=== PATIENT | male | born 1955 | race Caucasian/White ===

== ENCOUNTER 2023-07-02 19:05 | Inpatient (IN) | payer MEDICARE, SELFPAY ==
[2023-07-02] VITALS (11 sets, daily range): BP systolic 96–116; BP diastolic 61–95; PULSE 72–91; RESP 16–20; TEMP 36.6–37; O2SAT 89–93; BMI 16.8; BMI 16.6
--- NOTE | 2023-07-02 19:34 | CRLHL7_ITS ---
For Patients: As a result of the Cures Act, medical imaging exams and procedure reports are released immediately into your electronic medical record. You may view this report before your referring provider. If you have questions, please contact your health care provider. INDICATION: Shortness of breath TECHNIQUE: Chest 2 view. Permanently recorded images are archived. COMPARISON: 03/30/2016 FINDINGS: Cardiovascular and mediastinum: Heart size and vasculature are normal in caliber and appearance. Unchanged calcified left hilar granuloma Lungs and pleural spaces: Hyperexpanded lungs. New dense pulmonary nodule in the left midlung on the frontal image. Unchanged small pulmonary nodule in the left upper lobe. Increased hazy lung markings in the left lung base and left upper lobe Bones and soft tissues: Unremarkable for age. IMPRESSION: Increased hazy lung markings in the left lung base and left upper lobe, could represent multilobar pneumonia in the correct clinical setting, or scarring/fibrotic changes. New dense pulmonary nodule in the left midlung frontal image. While this could represent nodular consolidation in the setting of infection, a pulmonary nodule or calcified granuloma could appear similar. Recommend follow-up imaging after treatment to ensure resolution. Dictated by Ashwin Mcbride MD @ 07/02/2023 8:30:54 PM (Electronically Signed)
[2023-07-02 19:55] LABS: Eosinophils Percent Auto 0.1 % (0.0-7.0); Hematocrit 41.2 % (37.0-53.0); Hemoglobin* 13.5 gm/dL (13.5-17.5); Immature Granulocytes Pct Auto 0.2 %; Lymphocytes Percent Auto 5.2 % (20-44); Mean Corpuscular HGB Conc 33 gm/dL (32-36); Mean Corpuscular Hemoglobin 29 pg (26-34); Mean Corpuscular Volume 89 fL (80-100); Monocytes Percent Auto 5.2 % (0.0-11.0); Neutrophils Percent Auto 89.3 % (42.0-72.0); Platelet Count* 258 K/uL (140-440); RDW Coefficient of Variation % 13.1 % (11.5-15.5); Red Blood Count 4.64 m/uL (4.30-5.90); White Blood Count* 17.84 K/uL (4.50-11.00)
[2023-07-02 19:58] LABS: Slide Review Reflex No
[2023-07-02] MEDS: 0.9 % SODIUM CHLORIDE 500 ML 500 ML IV (19:58)
[2023-07-02 20:08] LABS: Albumin* 3.9 g/dL (3.3-5.0); Chloride* 98 mmol/L (96-114)
[2023-07-02 20:09] LABS: Potassium* 4.2 mmol/L (3.6-5.1); Sodium* 133 mmol/L (135-149)
[2023-07-02 20:11] LABS: Alanine Aminotransferase* 12 U/L (4-50); Alkaline Phosphatase* 97 U/L (40-150); Aspartate Amino Transferase* 20 U/L (12-35); Bilirubin Direct* 0.2 mg/dL (0.0-0.5); Bilirubin Total* 0.8 mg/dL (0.1-1.5); Creatinine* 1.1 mg/dL (0.5-1.5); Est. Creatinine Clearance* 44.73; Estimated Glomerular Filt Rate 74 ml/min; Total Protein* 7.7 g/dL (6.0-8.3)
[2023-07-02 20:12] LABS: Anion Gap 10 mEq/L (7-15); Blood Urea Nitrogen* 15 mg/dL (7-30); Calcium* 9.5 mg/dL (8.4-10.6); Carbon Dioxide* 25 mmol/L (20-32); Glucose* 95 mg/dL (60-115)
[2023-07-02 20:24] LABS: C Reactive Protein* 18.5 mg/dL (0.5-1.0); NT Pro B Type NatriureticPept* 785 pg/mL; Troponin I* < 0.01 ng/mL (0.01-0.04)
--- NOTE | 2023-07-02 20:25 | ED_ITS ---
HPI - General Adult General Chief complaint: Weakness Stated complaint: weakness Time Seen by Provider: 07/02/23 19:25 Source: patient Mode of arrival: EMS Limitations: no limitations History of Present Illness HPI narrative: 67-year-old male with a history of COPD, Parkinson's disease, and continued tobacco use disorder presenting today with increased weakness. Patient has been living with his brother, brother had a hard time getting him to ambulate today. Patient states that he just feels very weak, tired and ?slightly short of breath on and off?. Patient states that he takes a blood pressure medication and his inhaler, does not take any of his other prescribed medications including his Parkinson's medications because he cannot afford them. He is not sure which inhaler he is using, he does have several prescribed to him. Patient has a period of homelessness and failure to thrive recently, is staying with his brother. He denies any fevers or chills. He denies 1 extremity being weaker than the other. He complains of weakness of the entire body but mostly the legs, again this is symmetric. He denies any loss of bowel or bladder function, no back pain. Denies any new cough or worsening cough, no vomiting. States that he has been eating and drinking like he always does. His brother called EMS. When EMS arrived patient was found to be hypoxic at 89-90% on room air. He does not have oxygen at home. Related Data Home Medications Medication Instructions Recorded Confirmed albuterol sulfate 90 mcg/actuation inhalation 07/02/23 aerosol inhaler carbidopa 25 mg-levodopa 100 mg 1 tab PO BID 07/02/23 07/02/23 tablet folic acid 1 mg tablet 1 mg PO DAILY 07/02/23 07/02/23 ipratropium 20 mcg-albuterol 100 1 puff inhalation Q6H 07/02/23 07/02/23 mcg/actuation mist for inhalation melatonin 3 mg capsule 3 mg PO HS PRN 07/02/23 07/02/23 metoprolol tartrate 50 mg tablet 50 mg PO DAILY blood pressure 07/02/23 07/02/23 selegiline HCl 5 mg capsule 5 mg PO BID 07/02/23 07/02/23 tiotropium 2.5 mcg-olodaterol 2.5 2 inh inhalation DAILY 07/02/23 07/02/23 mcg/actuation mist for inhalation (Stiolto Respimat) Allergies Allergy/AdvReac Type Severity Reaction Status Date / Time fish derived Allergy Verified 07/02/23 19:19 Review of Systems Status of ROS: Reports: 10 or more systems reviewed and unremarkable except as noted in History and below [facility] Social History Smoking Status: Current every day smoker What tobacco products do you use: cigarettes Do you use any of these nicotine containing products: None How often do you have a drink containing alcohol: never AUDIT-C Alcohol total score: 0 Non-prescribed substance use: marijuana (any form) Exam Narrative: Exam Narrative: Thin, frail patient in no acute distress. Alert and oriented. Patient is cooperative but answers a lot of questions involving his health by saying I am not sure. Affect is slightly flat. Thoughts are goal oriented and rational. No tangential or magical thinking noted. Patient has a hard time completing full sentence without needing take a deep breath. Patient is disheveled. HEENT: Normocephalic atraumatic. Pupils are equally round reactive to light. Extraocular muscles are intact. Conjunctivae are moist without any icterus noted. Moist mucous membranes. Posterior pharynx is normal. Very poor dentition. Cardiovascular: Heart is regular rate and rhythm S1 and S2 are present without any murmurs. Lungs: Rales are present bilaterally. Abdomen: Soft and nontender nondistended with normal bowel sounds. No guarding or rebound. Extremities: Bilateral lower extremities are without edema. Normal DP and PT pulses. Skin: Well perfused without any obvious rashes. Const: Vital Signs, click to edit/add: Vital Signs - 24 hr 07/02/23 19:11 07/02/23 19:13 07/02/23 19:19 Temperature 98 F Pulse Rate 87 Pulse Rate [Pulse Oximeter] 88 Respiratory Rate 20 18 Blood Pressure 116/95 H Blood Pressure [Le ft Upper Arm] 116/95 H Pulse Oximetry 90 89 91 Oxygen Delivery Me thod Room Air Nasal Cannula Oxygen Flow Rate 1 1 07/02/23 19:31 07/02/23 19:34 07/02/23 19:56 Temperature Pulse Rate 82 78 Pulse Rate [Pulse Oximeter] Respiratory Rate 18 18 Blood Pressure 114/65 102/72 Blood Pressure [Le ft Upper Arm] Pulse Oximetry 89 91 92 Oxygen Delivery Me thod Room Air Room Air Oxygen Flow Rate 07/02/23 20:01 Temperature Pulse Rate 77 Pulse Rate [Pulse Oximeter] Respiratory Rate 18 Blood Pressure 110/70 Blood Pressure [Le ft Upper Arm] Pulse Oximetry 93 Oxygen Delivery Me thod Room Air Oxygen Flow Rate Course Course Hospital Course: IV is established and fluids are started. Patient is placed on 1 L nasal cannula and goes up to approximately 92-93%. EKG, read by me, shows normal sinus rhythm, pulse 89, left bundle-branch block. Unknown if left bundle-branch block is new. Labs were drawn: WBC elevated at 17.8, CRP above 18. Remainder of blood work unremarkable, including a troponin. Triple swab negative. Chest x-ray, read by me, shows a left-sided infiltrate. Rocephin and azithromycin started in the ER today after blood cultures were drawn. Vital Signs Vital signs: Initial Vital Signs Pulse Rate 87 07/02/23 19:11 Respiratory Rate 20 07/02/23 19:11 Blood Pressure 116/95 H 07/02/23 19:11 Blood Pressure Mean 102 07/02/23 19:11 Pulse Oximetry 90 07/02/23 19:11 Oxygen Flow Rate 1 07/02/23 19:11 Vital Signs Pulse Rate 87 07/02/23 19:11 Respiratory Rate 20 07/02/23 19:11 Blood Pressure 116/95 H 07/02/23 19:11 Pulse Oximetry 90 07/02/23 19:11 Oxygen Flow Rate 1 07/02/23 19:11 Temperature 98 F 07/02/23 19:13 Pulse Rate 77 07/02/23 20:01 Respiratory Rate 18 07/02/23 20:01 Blood Pressure 110/70 07/02/23 20:01 Pulse Oximetry 93 07/02/23 20:01 Oxygen Delivery Method Room Air 07/02/23 20:01 Oxygen Flow Rate 1 07/02/23 19:19 Medical Decision Making MDM Narrative Medical decision making narrative: 67-year-old male with a history of COPD, presenting with pneumonia and weakness. Patient will be admitted for further management. Lab Data Lab results reviewed: Yes I reviewed the patient's lab results Labs: Lab Results 07/02/23 Range/Units 19:45 WBC 17.84 H (4.50-11.00) K/uL RBC 4.64 (4.30-5.90) m/uL Hgb 13.5 (13.5-17.5) gm/dL Hct 41.2 (37.0-53.0) % MCV 89 (80-100) fL MCH 29 (26-34) pg MCHC 33 (32-36) gm/dL RDW Coeff of Karolyn 13.1 (11.5-15.5) % Plt Count 258 (140-440) K/uL Neut % (Auto) 89.3 H (42.0-72.0) % Lymph % (Auto) 5.2 L (20-44) % Schleicher % (Auto) 5.2 (0.0-11.0) % Eos % (Auto) 0.1 (0.0-7.0) % Baso % (Auto) 0.0 (0.0-3.0) % Neut # (Auto) 15.90 H (1.7-7.0) K/uL Lymph # (Auto) 0.90 (0.90-2.90) K/uL Schleicher # (Auto) 0.90 (0.00-0.90) K/UL Eos # (Auto) 0.00 (0.00-0.50) K/uL Baso # (Auto) 0.00 (0.00-0.30) K/uL Abs Immat Gran (auto) 0.00 (0.00-0.30) K/uL Imm/Tot Granulo (auto) 0.2 % Sodium 133 L (135-149) mmol/L Potassium 4.2 (3.6-5.1) mmol/L Chloride 98 (96-114) mmol/L Carbon Dioxide 25 (20-32) mmol/L Anion Gap 10 (7-15) mEq/L BUN 15 (7-30) mg/dL Creatinine 1.1 (0.5-1.5) mg/dL Estimated Creat Clear 44.73 Estimated GFR 74 ml/min Glucose 95 (60-115) mg/dL Lactate 1.0 (0.5-1.9) mmol/L Calcium 9.5 (8.4-10.6) mg/dL Total Bilirubin 0.8 (0.1-1.5) mg/dL Direct Bilirubin 0.2 (0.0-0.5) mg/dL AST 20 (12-35) U/L ALT 12 (4-50) U/L Alkaline Phosphatase 97 (40-150) U/L Troponin I < 0.01 L (0.01-0.04) ng/mL C-Reactive Protein 18.5 H (0.5-1.0) mg/dL NT-Pro-B Natriuret Pep 785 pg/mL Total Protein 7.7 (6.0-8.3) g/dL Albumin 3.9 (3.3-5.0) g/dL SARS-CoV-2 (PCR) Negative SARS-CoV-2 (Negative) Influenza Type A (PCR) Negative PCR FLU A (Negative) Influenza Type B (PCR) Negative PCR FLU B (Negative) RSV (PCR) Negative PCR RSV (Negative) Imaging Data Chest x-ray: Attestation: I have reviewed the pertinent imaging results. Radiologist's impression: Chest 2 view. Permanently recorded images are archived. COMPARISON: 03/30/2016 FINDINGS: Cardiovascular and mediastinum: Heart size and vasculature are normal in caliber and appearance. Unchanged calcified left hilar granuloma Lungs and pleural spaces: Hyperexpanded lungs. New dense pulmonary nodule in the left midlung on the frontal image. Unchanged small pulmonary nodule in the left upper lobe. Increased hazy lung markings in the left lung base and left upper lobe Bones and soft tissues: Unremarkable for age. IMPRESSION: Increased hazy lung markings in the left lung base and left upper lobe, could represent multilobar pneumonia in the correct clinical setting, or scarring/fibrotic changes. New dense pulmonary nodule in the left midlung frontal image. While this could represent nodular consolidation in the setting of infection, a pulmonary nodule or calcified granuloma could appear similar. Recommend follow-up imaging after treatment to ensure resolution. ECG Data Attestation: I personally reviewed and interpreted this ECG as follows: Discharge Plan Discharge Clinical Impression: Weakness, Pneumonia Patient Disposition: Admitted As Inpatient Condition: Stable
[2023-07-02 20:33] LABS: PCR FLU A Negative PCR FLU A (Negative); PCR FLU B Negative PCR FLU B (Negative); PCR RSV Negative PCR RSV (Negative)
[2023-07-02 20:44] LABS: SARS PCR* Negative SARS-CoV-2 (Negative)
[2023-07-02 20:46] LABS: Appearance Urine Slightly Cloudy (Clear); Bilirubin Urine Negative (Negative); Blood Urine Trace-intact (Negative); Color Urine Yellow (Yellow); Glucose Urine Negative (Negative); Ketones Urine 2+ (Negative); Leukocyte Esterase Urine Trace (Negative); Nitrite Urine Positive (Negative); Protein Urine 2+ (Negative); Urobilinogen Urine 0.2 (0.2-1.0); pH Urine 6.5 (5.0-8.5)
[2023-07-02] MEDS: AZITHROMYCIN 500 MG in 0.9 % SODIUM CHLORIDE 250 ml 250 ML 255 MG IVPB (20:47)
[2023-07-02 20:49] LABS: Thyroid Stimulating Hormone* 0.475 uIU/mL (0.270-4.20)
[2023-07-02 20:57] LABS: Amorphous Sediment Urine Moderate; Bacteria Urine Few; RBC Urine 0-2 (0-2); Squamous Epithelial Cell Urine Few (None-Few)
--- NOTE | 2023-07-02 21:16 | PC.NURSE ---
report given to Melissa ROME on M/S
--- NOTE | 2023-07-02 21:24 | PC.NURSE ---
patient taken to room 259 on medsurg
--- NOTE | 2023-07-02 21:28 | PM.IMHP1 ---
Hospitalist- H&P: HPI History of Present Illness Time Seen by Provider: 22:30 Date Seen: 07/02/23 Chief complaint: weakness Narrative: Levy Argueta is a 67 year old male with long h/o EtOH abuse (quit 1 year ago), FTT, severe malnutrition, HTN, COPD who presented through ER for concern of acute bilateral LE weakness. His brother told ER physician that Hank has been declining and has become weak to the point where he can no longer walk. There seems to be in acute on chronic component of this. Hank said that he felt sudden numbness in both of his lower extremities this morning upon waking. It is notable that in Dr. Begum's office note from about a year ago, Hank was at the visit in a wheelchair and had difficulty getting up from the wheelchair and standing for 1 minute due to weakness and difficulty with balance. He also has a history of failure to thrive and severe protein calorie malnutrition noted in 2019 when he was hospitalized at [facility]. Here he was found to have possible left-sided pneumonia. Also has a history of dysphagia for which he had been on a dysphagia diet at 1 point, but I do not think he is currently following this. He is also self discontinued various medications, such as those for parkinsonism, due to cost. He denies any fevers, chills, shortness of breath, cough, upper respiratory symptoms, or pain. He has had no other focal numbness, weakness, or tingling. He is a poor historian and was unable to give specific details of his history or medications. Review of Systems Status of ROS: Reports: 10 or more systems reviewed and unremarkable except as noted in History and below [facility] Medical History (Updated 07/02/23 @ 23:18 by Shu Vaughan MD) Dysphagia ?R13.10 - Dysphagia, unspecified (ICD-10) Cerebral vascular disease ?I67.9 - Cerebrovascular disease, unspecified (ICD-10) Failure to thrive COPD (chronic obstructive pulmonary disease) ?J44.9 - Chronic obstructive pulmonary disease, unspecified (ICD-10) Empyema of lung ?J86.9 - Pyothorax without fistula (ICD-10) POLST (Physician Orders for Life-Sustaining Treatment) ?Z78.9 - Other specified health status (ICD-10) Parkinson disease ?G20 - Parkinson's disease (ICD-10) ARF (acute renal failure) ?N17.9 - Acute kidney failure, unspecified (ICD-10) Colonic thickening ?K63.9 - Disease of intestine, unspecified (ICD-10) Pulmonary nodules ?R91.8 - Other nonspecific abnormal finding of lung field (ICD-10) GERD (gastroesophageal reflux disease) ?K21.9 - Gastro-esophageal reflux disease without esophagitis (ICD-10) Systolic CHF ?I50.20 - Unspecified systolic (congestive) heart failure (ICD-10) Anemia in chronic illness ?D63.8 - Anemia in other chronic diseases classified elsewhere (ICD-10) Aspiration pneumonia ?J69.0 - Pneumonitis due to inhalation of food and vomit (ICD-10) Tobacco use disorder ?F17.200 - Nicotine dependence, unspecified, uncomplicated (ICD-10) Hyponatremia ?E87.1 - Hypo-osmolality and hyponatremia (ICD-10) Alcohol withdrawal syndrome ?F10.939 - Alcohol use, unspecified with withdrawal, unspecified (ICD-10) Abnormal liver function tests (~2012) ?R79.89 - Other specified abnormal findings of blood chemistry (ICD-10) CKD (chronic kidney disease) ?N18.9 - Chronic kidney disease, unspecified (ICD-10) AISHA (obstructive sleep apnea) ?G47.33 - Obstructive sleep apnea (adult) (pediatric) (ICD-10) LBBB (left bundle branch block) ?I44.7 - Left bundle-branch block, unspecified (ICD-10) Homelessness ?Z59.00 - Homelessness unspecified (ICD-10) Cervical spine arthritis ?M47.812 - Spondylosis without myelopathy or radiculopathy, cervical region (ICD-10) Alcohol abuse ?F10.10 - Alcohol abuse, uncomplicated (ICD-10) Hypertension ?I10 - Essential (primary) hypertension (ICD-10) Seizure disorder ?G40.909 - Epilepsy, unspecified, not intractable, without status epilepticus (ICD-10) Surgical History (Updated 07/02/23 @ 21:46 by Shu Vaughan MD) Hx of unilateral orchiectomy ?Z90.79 - Acquired absence of other genital organ(s) (ICD-10) History of lumbar fusion ?Z98.1 - Arthrodesis status (ICD-10) Hx of hernia repair ?Z98.890 - Other specified postprocedural states (ICD-10) ?Z87.19 - Personal history of other diseases of the digestive system (ICD-10) Hx of fusion of cervical spine ?Z98.1 - Arthrodesis status (ICD-10) Family History (Updated 07/02/23 @ 21:48 by Shu Vaughan MD) Brother Colon polyps Diabetes Father Diabetes Heart disease Stroke Social History (Updated 07/02/23 @ 22:43 by Shu Vaughan MD) Narrative: Lives with brother. Smokes 1ppd, rolls his own cigarettes. He is a lifelong alcoholic, was that treatment several times, and stopped drinking completely about 1 year ago. He smokes marijuana at least daily, sometimes several times a day, most recently yesterday, he did not use any today. He confirms that he would like to be DNR/DNI. What is your current living situation?: I have a place to live at present, but am concerned about future Problems where you live: no known problems Problems where you live details: NA In the past 12 months, utilities in danger of being shut off: no In the past 12 mos, have been you worried that your food would run out before you had money to buy more?: never true In the past 12 mos, the food you bought just didn't last and you didn't have money to buy more?: never true Highest level of school completed/degree received: high school graduate Smoking Status: Current every day smoker What tobacco products do you use: cigarettes Smoking packs per day: 1 Smoking cigarettes per day: 20.0 Years smoked: 50 Smoking pack-years: 50.00 Do you use any of these nicotine containing products: None Second hand tobacco smoke exposure: Yes How often do you have a drink containing alcohol: never How often do you have six or more drinks on one occasion: Never AUDIT-C Alcohol total score: 0 Non-prescribed substance use: marijuana (any form) Non-prescribed substance use details: daily Caffeine: No How often does anyone, including family, friends and others, physically hurt you: never How often does anyone, including family, friends and others, insult or talk down to you: never How often does anyone, including family, friends and others, threaten you with harm: never How often does anyone, including family, friends and others, scream or curse at you: never service: No Meds Home Medications and Allergies Home Medications Medication Instructions Recorded Confirmed Type albuterol sulfate 90 mcg/actuation 2 puff inhalation Q4H PRN 07/02/23 07/02/23 History aerosol inhaler amlodipine 10 mg tablet 10 mg PO DAILY blood pressure 07/02/23 07/02/23 History carbidopa 25 mg-levodopa 100 mg 1 tab PO BID 07/02/23 07/02/23 History tablet folic acid 1 mg tablet 1 mg PO DAILY 07/02/23 07/02/23 History ipratropium 20 mcg-albuterol 100 1 puff inhalation Q6H 07/02/23 07/02/23 History mcg/actuation mist for inhalation melatonin 3 mg capsule 3 mg PO HS PRN 07/02/23 07/02/23 History metoprolol tartrate 50 mg tablet 50 mg PO DAILY blood pressure 07/02/23 07/02/23 History selegiline HCl 5 mg capsule 5 mg PO BID 07/02/23 07/02/23 History tiotropium 2.5 mcg-olodaterol 2.5 2 inh inhalation DAILY 07/02/23 07/02/23 History mcg/actuation mist for inhalation (Stiolto Respimat) Allergies Allergy/AdvReac Type Severity Reaction Status Date / Time fish derived Allergy Verified 07/02/23 19:19 Exam Narrative: Exam Narrative: General: Thin, cachectic, looks older than stated age, No acute distress. Awake alert oriented x3. HEENT: Normocephalic atraumatic, pupils equally round and reactive to light and accommodation. Oropharynx clear. Poor dentition. Mucous membranes are moist. No cervical lymphadenopathy, thyromegaly or carotid bruits. No JVD. Cardiovascular: Regular rate and rhythm. No murmurs, gallops, or rubs. Chest: No increased work of breathing. Poor inspiratory effort. Some tightness and bilateral rales, no wheezing or crackles. Abdomen: Bowel sounds present. Soft, nondistended, nontender. No hepatosplenomegaly or masses. Extremities: No edema, no cyanosis or clubbing. Skin: No jaundice, no pallor, no rashes. Neuro: There are no focal deficits. Romberg is negative. Cranial nerves 2-12 are intact. Extraocular movements are full. No nystagmus. No facial asymmetry. Tongue is midline. Peripheral vision and vision are grossly intact. Strength is 5/5 in all 4 extremities. DTRs intact and symmetric. Light touch sensation is intact in face body and extremities. Coordination is intact in upper and lower extremities. Const: Vital Signs, click to edit/add: Vital Signs - 24 hr 07/02/23 19:11 07/02/23 19:13 07/02/23 19:19 Temperature 98 F Pulse Rate 87 Pulse Rate [Pulse Oximeter] 88 Respiratory Rate 20 18 Blood Pressure 116/95 H Blood Pressure [Le ft Upper Arm] 116/95 H Pulse Oximetry 90 89 91 Oxygen Delivery Me thod Room Air Nasal Cannula Oxygen Flow Rate 1 1 07/02/23 19:31 07/02/23 19:34 07/02/23 19:56 Temperature Pulse Rate 82 78 Pulse Rate [Pulse Oximeter] Respiratory Rate 18 18 Blood Pressure 114/65 102/72 Blood Pressure [Le ft Upper Arm] Pulse Oximetry 89 91 92 Oxygen Delivery Me thod Room Air Room Air Oxygen Flow Rate 07/02/23 20:01 07/02/23 20:33 07/02/23 21:01 Temperature Pulse Rate 77 76 72 Pulse Rate [Pulse Oximeter] Respiratory Rate 18 18 18 Blood Pressure 110/70 112/79 96/61 Blood Pressure [Le ft Upper Arm] Pulse Oximetry 93 90 91 Oxygen Delivery Me thod Room Air Oxygen Flow Rate Hospitalist - H&P: Result Labs Labs: Short CBC 07/02/23 Range/Units 19:45 WBC 17.84 H (4.50-11.00) K/uL Hgb 13.5 (13.5-17.5) gm/dL Hct 41.2 (37.0-53.0) % Plt Count 258 (140-440) K/uL BMP 07/02/23 19:45 Sodium 133 L Potassium 4.2 Chloride 98 Carbon Dioxide 25 BUN 15 Creatinine 1.1 Glucose 95 Calcium 9.5 Cardiac Enzymes 07/02/23 Range/Units 19:45 Troponin I < 0.01 L (0.01-0.04) ng/mL Liver Function 07/02/23 Range/Units 19:45 Total Bilirubin 0.8 (0.1-1.5) mg/dL Direct Bilirubin 0.2 (0.0-0.5) mg/dL AST 20 (12-35) U/L ALT 12 (4-50) U/L Alkaline Phosphatase 97 (40-150) U/L Albumin 3.9 (3.3-5.0) g/dL Urine 07/02/23 Range/Units 20:41 Urine Color Yellow (Yellow) Urine Appearance Slightly Cloudy A (Clear) Urine pH 6.5 (5.0-8.5) Ur Specific Starbuck 1.020 (1.000-1.030) Urine Protein 2+ A (Negative) Urine Glucose (UA) Negative (Negative) Ordering Physician: Elle Foy M.D. Date of Service: 07/02/23 Procedure(s): XR chest 2V Accession Number(s): [id number] cc: Elle Foy M.D.; Provider,Not a Local~ For Patients: As a result of the Cures Act, medical imaging exams and procedure reports are released immediately into your electronic medical record. You may view this report before your referring provider. If you have questions, please contact your health care provider. INDICATION: Shortness of breath TECHNIQUE: Chest 2 view. Permanently recorded images are archived. COMPARISON: 03/30/2016 FINDINGS: Cardiovascular and mediastinum: Heart size and vasculature are normal in caliber and appearance. Unchanged calcified left hilar granuloma Lungs and pleural spaces: Hyperexpanded lungs. New dense pulmonary nodule in the left midlung on the frontal image. Unchanged small pulmonary nodule in the left upper lobe. Increased hazy lung markings in the left lung base and left upper lobe Bones and soft tissues: Unremarkable for age. IMPRESSION: Increased hazy lung markings in the left lung base and left upper lobe, could represent multilobar pneumonia in the correct clinical setting, or scarring/fibrotic changes. New dense pulmonary nodule in the left midlung frontal image. While this could represent nodular consolidation in the setting of infection, a pulmonary nodule or calcified granuloma could appear similar. Recommend follow-up imaging after treatment to ensure resolution. Dictated by Ashwin Mcbride MD @ 07/02/2023 8:30:54 PM (Electronically Signed) Assessment and Plan Assessment and plan (1) Protein calorie malnutrition: Problem comment: - Dietary supplementation - Nutrition consult Status: Acute (2) Pneumonia: Problem comment: - h/o aspiration pneumonia, previously on dysphagia diet, consult speech therapy for swallow evaluation. - Admit for treatment. Start ceftriaxone/azithromycin. - Will need outpatient follow up imaging, has h/o pulm nodules, chronic smoker Status: Acute (3) Pulmonary nodule: Problem comment: 07/02/23 CXR: Increased hazy lung markings in the left lung base and left upper lobe, could represent multilobar pneumonia in the correct clinical setting, or scarring/fibrotic changes. New dense pulmonary nodule in the left midlung frontal image. While this could represent nodular consolidation in the setting of infection, a pulmonary nodule or calcified granuloma could appear similar. Recommend follow-up imaging after treatment to ensure resolution. Status: Suspected (4) Hypertension: Problem comment: Amlodipine, atenolol. 01/18/2013 amlodipine discontinued due to low blood pressure. December 2012: Cardiology recommended switch of atenolol to coreg and initiation of lisinopril. May 2022: Added back amlodipine. Jun 2022: Doubled amlodipine to 10mg. - Continue his home medications Status: Chronic (5) Weakness: Problem comment: - Acute on chronic - Dr. Begum's note 07/22/22: When asked him to stand he is able to stand up on his own but needs to push up with his arms on a wheelchair. He is able to stand with holding onto something more for balance and weakness. After standing for less than a minute he said his legs were getting tired and needed to sit down. - PT and OT consult - Consult SW as I suspect he will need rehab stay Status: Acute (6) COPD (chronic obstructive pulmonary disease): Problem comment: - PRN nebs - Add prednisone for 3-5 days - Wean O2 to keep sats 88-89% in setting of COPD to prevent hypercapnea - May need ambulatory O2 study prior to discharge Status: Chronic (7) Failure to thrive: Problem comment: - 01/2019 [facility]: Failure to thrive with generalized weakness, increased falls, severe malnutrition, dysphagia, and weight loss. Transitional care on discharge. Status: Chronic Plan Start low-dose nightly Lovenox and SCDs for VTE prophylaxis.
[2023-07-02] MEDS: cefTRIAXone 1 GM in 0.9 % SODIUM CHLORIDE Mini-bag 100 ML IVPB (22:35)
[2023-07-03 03:00] VITALS: BP 99/59; PULSE 69; RESP 14; TEMP 37.3; O2SAT 90
[2023-07-03] MEDS: IPRAT-ALBUT 0.5-2.5 MG/3 ML NEB 1 NEB IH ×4 (05:37→23:26)
[2023-07-03 06:31] LABS: Basophils Percent Auto 0.1 % (0.0-3.0); Eosinophils Percent Auto 0.2 % (0.0-7.0); Hematocrit 36.5 % (37.0-53.0); Hemoglobin* 11.9 gm/dL (13.5-17.5); Immature Granulocytes Pct Auto 0.2 %; Lymphocytes Percent Auto 11.4 % (20-44); Mean Corpuscular HGB Conc 33 gm/dL (32-36); Mean Corpuscular Hemoglobin 29 pg (26-34); Mean Corpuscular Volume 89 fL (80-100); Monocytes Percent Auto 7.7 % (0.0-11.0); Neutrophils Percent Auto 80.4 % (42.0-72.0); Platelet Count* 222 K/uL (140-440); RDW Coefficient of Variation % 13.1 % (11.5-15.5); White Blood Count* 13.19 K/uL (4.50-11.00)
[2023-07-03 06:34] LABS: Slide Review Reflex No
--- NOTE | 2023-07-03 06:37 | PC.NURSE ---
67 year old male admitting to unit at 2135 wit primary diagnosis of pneumonia. Levy Martinez is frail and thin in appearance, pallor in color. Denies any pain at this time. Lung sounds diminished in bilateral bases, denies any cough. Patient reports shortness of breath on exertion, patient reports he has this at baseline. Abdomen soft and non tender, bowel sounds active x 4 quadrants. Transfers with minimal assist x 1, pivot transfer. Per patient report he uses a wheeled walker at home while outside as his current home is too small for him to utilize inside. Patient tearful and expressing concerns on future residence and does not have anyone assisting with finding a place to live. banking services advisor consult ordered.
[2023-07-03 06:44] LABS: Chloride* 101 mmol/L (96-114); Potassium* 3.7 mmol/L (3.6-5.1); Sodium* 135 mmol/L (135-149)
[2023-07-03 06:46] LABS: Est. Creatinine Clearance* 48.86; Estimated Glomerular Filt Rate 82 ml/min
[2023-07-03 06:47] LABS: Anion Gap 9 mEq/L (7-15); Blood Urea Nitrogen* 15 mg/dL (7-30); Carbon Dioxide* 25 mmol/L (20-32)
[2023-07-03 06:48] LABS: Calcium* 8.9 mg/dL (8.4-10.6); Glucose* 87 mg/dL (60-115)
[2023-07-03 07:00] VITALS: BP 96/58; PULSE 74; PULSE 77; RESP 14; TEMP 37.2; O2SAT 90
[2023-07-03 07:03] LABS: C Reactive Protein* 23.8 mg/dL (0.5-1.0)
[2023-07-03] MEDS: predniSONE 20 MG TABLET PO (08:58)
[2023-07-03] MEDS: METOPROLOL SUCCINATE (XL) 25 MG TAB PO (08:58)
[2023-07-03] MEDS: SODIUM CHLORIDE 0.9 % (FLUSH) 10 ML SYRINGE 5 ML IVF ×2 (08:59→20:29)
[2023-07-03 11:15] VITALS: BP 114/60; PULSE 81; RESP 18; TEMP 36.9; O2SAT 91
--- NOTE | 2023-07-03 13:00 | PM.IMPN1 ---
Progress Note: A&P Assessment and plan (1) Pneumonia: Problem details: - h/o aspiration pneumonia, previously on dysphagia diet, consult speech therapy for swallow evaluation. - Admit for treatment. Start ceftriaxone/azithromycin. - Will need outpatient follow up imaging, has h/o pulm nodules, chronic smoker Status: Acute (2) Failure to thrive: Problem details: - 01/2019 [place]: Failure to thrive with generalized weakness, increased falls, severe malnutrition, dysphagia, and weight loss. Transitional care on discharge. Status: Chronic (3) COPD (chronic obstructive pulmonary disease): Problem details: - PRN nebs - Add prednisone for 3-5 days - Wean O2 to keep sats 88-89% in setting of COPD to prevent hypercapnea - May need ambulatory O2 study prior to discharge Status: Chronic (4) Protein calorie malnutrition: Problem details: - Dietary supplementation - Nutrition consult Status: Acute (5) Hypertension: Problem details: Amlodipine, atenolol. 01/18/2013 amlodipine discontinued due to low blood pressure. December 2012: Cardiology recommended switch of atenolol to coreg and initiation of lisinopril. May 2022: Added back amlodipine. Jun 2022: Doubled amlodipine to 10mg. 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 Shaw Jul 2012. ~ Since 1979, intermittent, tonic clonic, [place] [facility] [place] been on Medications. Seizure vs Alcohol withdrawal. ~ September 2012: Follow up with Dr. Shaw, increased Keppra to 1000 mg twice daily. November 2020: Dr. Van Martinez consult in Neurology, restarted Keppra, Patient was off seizure medication without seizure. Status: Chronic (7) Weakness: Problem details: - Acute on chronic - Dr. Begum's note 07/22/22: When asked him to stand he is able to stand up on his own but needs to push up with his arms on a wheelchair. He is able to stand with holding onto something more for balance and weakness. After standing for less than a minute he said his legs were getting tired and needed to sit down. - PT and OT consult - Consult SW as I suspect he will need rehab stay Status: Acute (8) Cerebral vascular disease: Problem details: Small vessel ischemic disease, old lacunar infarcts on head CT 01/2019 Status: Acute (9) Pulmonary nodule: Problem details: 07/02/23 CXR: Increased hazy lung markings in the left lung base and left upper lobe, could represent multilobar pneumonia in the correct clinical setting, or scarring/fibrotic changes. New dense pulmonary nodule in the left midlung frontal image. While this could represent nodular consolidation in the setting of infection, a pulmonary nodule or calcified granuloma could appear similar. Recommend follow-up imaging after treatment to ensure resolution. Status: Suspected (10) Parkinson disease: Problem details: Diagnosis made in [place]. Clinically does not obvious Parkinson's disease. Also did not respond to Sinemet. Status: Acute (11) Colonic thickening: Problem details: Seen on [place] [facility] recommended, pt decliend Status: Acute (12) Alcohol abuse: Problem details: Stop drinking about June 2022. Status: Acute (13) Homelessness: Problem details: Currently living with his brother but concerned that this is a unacceptable of living arrangement. History of intermittent homelessness Status: Acute (14) Tobacco use disorder: Problem details: Declines nicotine replacement. Not interested in stopping smoking Status: Acute (15) Dysphagia: Problem details: 01/2019: DDL2 with thin liquids Status: Acute (16) Empyema of lung: Problem details: 01/04/2019 [place]: Left pleural space; Large left-sided pleural effusion with loculated empyema with streptococcus intermedius. Treated conservatively with chest tube, tissue plasminogen activator, and IV Rocephin. Status: Acute (17) Anemia in chronic illness: Problem details: 01/13/2013 Hemoglobin 11.2 01/14/2013 9.1. Ferritin level 3971 05/27/2022 Hgb 15.9 Status: Acute Plan Admit to the hospital for treatment of hypoxic respiratory failure with pneumonia and COPD. Kidney acquired pneumonia antibiotics with a Zithromax and ceftriaxone. Oxygen as needed. Prednisone and bronchodilator treatments as needed. PT OT and social media community manager to assess disabilities and work on disposition plan Time Spent With Patient Total time spent: Total time spent today is 60 minutes, 45 minutes in coordination of care discussing with patient other providers ongoing evaluation management of pneumonia, COPD, disability. Subjective Date Seen: 07/03/23 Interval history: 67-year-old male with COPD, heart failure with reduced ejection fraction, history of left empyema, seizure disorder, Parkinson's disease, malnutrition and previous strokes presents for profound weakness. Patient notes the primary problem that developed yesterday was his legs were so weak he could not walk. Paramedics were unable to get him to walk to the ambulance and they had to carry him on a stretcher. Longstanding history of problems with failure to thrive due to multiple reasons. Multiple hospitalizations where he has been diagnosed with pneumonia and empyema and encephalopathy and complications of alcohol abuse and renal failure and heart failure. These often lead to a rehab stay at a TCU. Eventually he leaves the TCU and continues on a pattern that leads to further failure. He has been largely not compliant with most of his medications though at this time he reports taking 2 blood pressure medicines and 1 inhaler. Not taking medicines for seizure treatment or Parkinson's. Patient tells me that his weakness was acute onset in the last day but he does note that he falls a lot at home and he thinks his brother is no longer able to care for him in the home. He lives in his brother's home which he says is a very old home, greater than 100 years old, and has small hallways and R-waves and has no room for him to have a walker. He tells me his brother cooks for him and they eat 1 meal a day. Outside of that meal he does do some snacking. He tells me he is getting enough to eat and that there is no food insecurity. Uncertain of that quality of the food that he is receiving. A longstanding history of alcohol abuse which is likely contributing to many of his problems. He reports he stop drinking about a year ago. Longstanding history of smoking cigarettes which he continues to smoke a pack a day. He has no interest in stopping or in nicotine replacement. He has COPD and has been on chronic oxygen in the past but not recently. He was hospitalized at [facility] with a left-sided empyema December of 2018 this was treated with chest tube drainage and lytics. Recurrent hospitalizations for pneumonia with a history of aspiration pneumonia and swallowing evaluation suggesting swallowing difficulties. He has had dietary recommendations to manage this in the past but is not following any restrictions in the food and liquid consistency. He has a history of heart failure with reduced ejection fraction. The last echo I can find reference to his from 2017 showing an ejection fraction of 25%. Also chronic left bundle branch block. He has been treated with heart failure medicines in the past but discontinued all of them except metoprolol. He has had a remote history of acute kidney injury with a creatinine greater than 10. This was thought to be due to volume depletion and malnutrition. This resolved with hydration. He has had a history of seizures. EEG showed a focus of epilepsy in the right parietal area. He has been repeatedly treated with Keppra and repeatedly has stop taking it. He has not had any Keppra for 2 or 3 years. His last seizure was a year ago He was diagnosed with Parkinson's disease in [place] 2 or 3 years ago. He was treated with Sinemet which was of no help. It is not clear based on observation today that he actually has Parkinson's disease. He has been diagnosed with depression in the past and started on antidepressant but he has discontinue that. At the time of this admission he was thought to have a left-sided pneumonia. Started on a Zithromax and ceftriaxone for community-acquired pneumonia. He is given prednisone for COPD and inhaled bronchodilators as well. He started on oxygen. Overnight he has appeared to wean off of the oxygen though O2 sats still drop into the upper 80s. He reports feeling quite a bit better today. Nursing staff note that his blood pressure is been low overnight and that his urine output has been low overnight. Exam Narrative: Exam Narrative: He is alert and appears in no obvious distress. He is ill-kempt. Speech is normal. He is oriented to his circumstances. He has some difficulty recalling past medical history and events. Head is without obvious trauma. Eyes are normal. Extraocular movements are full. Visual marrufo are intact. No facial asymmetry. Oropharynx with dental decay and dental loss. Dry mucous membranes. Neck is supple without mass or adenopathy. No stridor. Respirations with decreased breath sounds in all lung marrufo. A few crackles heard at the left lung base. Cardiovascular: S1, S2, regular rate and rhythm. Abdomen is soft without tenderness or mass. External genitalia normal. Extremities without edema. He moves all 4 extremities well with equal strength. Urrrag-[id number]-zdwzyu and heel-villavicencio are normal. He has no tremor. No rigidity or obvious bradykinesia Const: Vital Signs, click to edit/add: Vital Signs - 24 hr 07/02/23 19:11 07/02/23 19:13 07/02/23 19:19 Temperature 98 F Pulse Rate 87 Pulse Rate [Pulse Oximeter] 88 Respiratory Rate 20 18 Blood Pressure 116/95 H Blood Pressure [Le ft Arm] Blood Pressure [Le ft Upper Arm] 116/95 H Pulse Oximetry 90 89 91 Oxygen Delivery Me thod Room Air Nasal Cannula Oxygen Flow Rate 1 1 07/02/23 19:31 07/02/23 19:34 07/02/23 19:56 Temperature Pulse Rate 82 78 Pulse Rate [Pulse Oximeter] Respiratory Rate 18 18 Blood Pressure 114/65 102/72 Blood Pressure [Le ft Arm] Blood Pressure [Le ft Upper Arm] Pulse Oximetry 89 91 92 Oxygen Delivery Me thod Room Air Room Air Oxygen Flow Rate 07/02/23 20:01 07/02/23 20:33 07/02/23 21:01 Temperature Pulse Rate 77 76 72 Pulse Rate [Pulse Oximeter] Respiratory Rate 18 18 18 Blood Pressure 110/70 112/79 96/61 Blood Pressure [Le ft Arm] Blood Pressure [Le ft Upper Arm] Pulse Oximetry 93 90 91 Oxygen Delivery Me thod Room Air Oxygen Flow Rate 07/02/23 21:52 07/02/23 21:52 07/02/23 23:00 Temperature 98.6 F Pulse Rate Pulse Rate [Pulse Oximeter] 81 91 Respiratory Rate 16 16 Blood Pressure Blood Pressure [Le ft Arm] 104/63 Blood Pressure [Le ft Upper Arm] Pulse Oximetry 91 91 Oxygen Delivery Me thod Room Air Room Air Oxygen Flow Rate 07/03/23 03:00 07/03/23 07:00 07/03/23 07:00 Temperature 99.2 F Pulse Rate Pulse Rate [Pulse Oximeter] 69 74 Respiratory Rate 14 14 14 Blood Pressure Blood Pressure [Le ft Arm] 99/59 L Blood Pressure [Le ft Upper Arm] Pulse Oximetry 90 90 Oxygen Delivery Me thod Room Air Room Air Oxygen Flow Rate 0 07/03/23 07:00 07/03/23 11:15 Temperature 99.0 F 98.4 F Pulse Rate Pulse Rate [Pulse Oximeter] 74 81 Respiratory Rate 14 18 Blood Pressure Blood Pressure [Le ft Arm] 96/58 L 114/60 Blood Pressure [Le ft Upper Arm] Pulse Oximetry 90 91 Oxygen Delivery Me thod Room Air Room Air Oxygen Flow Rate 1 Documenting provider has reviewed patient's vital signs: yes Labs Labs: Laboratory Results - last 24 hr 07/02/23 07/02/23 07/03/23 19:45 20:41 06:03 WBC 17.84 H 13.19 H RBC 4.64 4.10 L Hgb 13.5 11.9 L Hct 41.2 36.5 L MCV 89 89 MCH 29 29 MCHC 33 33 RDW Coeff of Karolyn 13.1 13.1 Plt Count 258 222 Neut % (Auto) 89.3 H 80.4 H Lymph % (Auto) 5.2 L 11.4 L Payne % (Auto) 5.2 7.7 Eos % (Auto) 0.1 0.2 Baso % (Auto) 0.0 0.1 Neut # (Auto) 15.90 H 10.60 H Lymph # (Auto) 0.90 1.50 Payne # (Auto) 0.90 1.00 H Eos # (Auto) 0.00 0.00 Baso # (Auto) 0.00 0.00 Abs Immat Gran (auto) 0.00 0.00 Imm/Tot Granulo (auto) 0.2 0.2 Sodium 133 L 135 Potassium 4.2 3.7 Chloride 98 101 Carbon Dioxide 25 25 Anion Gap 10 9 BUN 15 15 Creatinine 1.1 1.0 Estimated Creat Clear 44.73 48.86 Estimated GFR 74 82 Glucose 95 87 Lactate 1.0 Calcium 9.5 8.9 Total Bilirubin 0.8 Direct Bilirubin 0.2 AST 20 ALT 12 Alkaline Phosphatase 97 Troponin I < 0.01 L C-Reactive Protein 18.5 H 23.8 H NT-Pro-B Natriuret Pep 785 Total Protein 7.7 Albumin 3.9 TSH 0.475 Urine Color Yellow Urine Appearance Slightly Cloudy A Urine pH 6.5 Ur Specific [place] 1.020 Urine Protein 2+ A Urine Glucose (UA) Negative Urine Ketones 2+ A Urine Blood Trace-intact A Urine Nitrite Positive A Urine Bilirubin Negative Urine Urobilinogen 0.2 Ur Leukocyte Esterase Trace A Urine RBC 0-2 Urine WBC 5-10 A Ur Squamous Epith Cells Few Amorphous Sediment Moderate A Urine Bacteria Few A SARS-CoV-2 (PCR) Negative SARS-CoV-2 Influenza Type A (PCR) Negative PCR FLU A Influenza Type B (PCR) Negative PCR FLU B RSV (PCR) Negative PCR RSV
[2023-07-03] MEDS: SENNOSIDES 1 TAB TABLET PO ×2 (14:06→22:01)
[2023-07-03] MEDS: THIAMINE 100 MG TABLET 500 MG PO (14:46)
--- NOTE | 2023-07-03 15:46 | PC.NURSE ---
End of shift nursing note: Pt alert and oriented, answering questions appropriately. Pt noted to be poor historian when asked questions about home, such as last BM. Pt states 3 or 4 days maybe, PRN Senna started and admin x2 tabs this afternoon. Pt voiding, using urinal ind. Pt had shower this afternoon, greeting card writer brushed pt's hair. Pt reports minimal appetite, snacks and food encouraged throughout shift, pt reluctant, had 74% of breakfast then a couple packs of crackers shift. Pt denies pain. Continues on RA, 89-91%. Scheduled neb. BP in AM soft, notified, BP recheck in afternoon improved, pt asymptomatic. Pt Ax1 w/ walker and gaitbelt. On tele and continuous pulse ox. IV replaced d/t L hand IV dislodging/falling out after pt's shower. New 22g placed in L forearm, no issues. Med whole w/ water. Pt's brother 'Navjot' updated via phone today. Pt has call light within reach and able to use appropriately.
[2023-07-03 15:50] VITALS: BP 107/65; PULSE 71; PULSE 73; RESP 18; TEMP 36.4; O2SAT 96
[2023-07-03 19:20] VITALS: BP 111/65; PULSE 79; RESP 18; TEMP 36.6; O2SAT 92
[2023-07-03] MEDS: AZITHROMYCIN 250 MG TABLET 500 MG PO (20:28)
[2023-07-03] MEDS: ENOXAPARIN 40 MG/0.4 ML INJ SUBCUT (20:29)
[2023-07-03] MEDS: cefTRIAXone 1 GM in 0.9 % SODIUM CHLORIDE Mini-bag 100 ML IVPB (22:11)
[2023-07-03 23:00] VITALS: BP 93/54; PULSE 76; PULSE 84; RESP 18; TEMP 36.6; O2SAT 93
--- NOTE | 2023-07-03 23:11 | PC.NURSE ---
Pt alert and oriented x3 but at time will for get time, easily reoriented. Afebrile. Pt denies SOB, chest pain, pain, and N/V. Pt is voiding with urinal, up with A1 with walker gait belt. Pt tolerating a regular diet. Shift uneventful. Tele is NSR with bundle branch block. Pt reports not having had a bowel movement in the past 3-4 days PRN senna given. Bowel sounds active.
[2023-07-04 03:00] VITALS: BP 108/63; PULSE 77; RESP 18; TEMP 36.4; O2SAT 92
[2023-07-04] MEDS: IPRAT-ALBUT 0.5-2.5 MG/3 ML NEB 1 NEB IH ×4 (05:20→23:27)
[2023-07-04 06:26] LABS: Basophils Absolute Auto 0.01 K/uL (0.00-0.30); Basophils Percent Auto 0.1 % (0.0-3.0); Hematocrit 37.2 % (37.0-53.0); Hemoglobin* 11.9 gm/dL (13.5-17.5); Immature Granulocytes Abs Auto 0.05 K/uL (0.00-0.30); Immature Granulocytes Pct Auto 0.5 %; Lymphocytes Percent Auto 13.3 % (20-44); Mean Corpuscular HGB Conc 32 gm/dL (32-36); Mean Corpuscular Hemoglobin 29 pg (26-34); Mean Corpuscular Volume 90 fL (80-100); Monocytes Percent Auto 7.1 % (0.0-11.0); Platelet Count* 260 K/uL (140-440); RDW Coefficient of Variation % 13.1 % (11.5-15.5); Red Blood Count 4.13 m/uL (4.30-5.90)
[2023-07-04 06:29] LABS: Slide Review Reflex No
--- NOTE | 2023-07-04 06:32 | PC.NURSE ---
Shift note: Pt has been in bed through the shift. Only had 50ml of urine Bladder scan done at 0520 was 211. Denied any lower abdominal pain. Pt was able to maintain O2 >90 on room air. A/O, pleasant and cooperate with care and treatment. Pt able turn himself and reposition. Nebulizer given 2x.
[2023-07-04 06:43] LABS: Chloride* 104 mmol/L (96-114); Potassium* 3.8 mmol/L (3.6-5.1); Sodium* 142 mmol/L (135-149)
[2023-07-04 06:46] LABS: Anion Gap 8 mEq/L (7-15); Blood Urea Nitrogen* 15 mg/dL (7-30); Carbon Dioxide* 30 mmol/L (20-32); Creatinine* 0.9 mg/dL (0.5-1.5); Est. Creatinine Clearance* 48.86; Estimated Glomerular Filt Rate 94 ml/min
[2023-07-04 06:47] LABS: Calcium* 9.6 mg/dL (8.4-10.6); Glucose* 118 mg/dL (60-115)
[2023-07-04 07:01] LABS: C Reactive Protein* 21.2 mg/dL (0.5-1.0)
[2023-07-04 07:35] VITALS: BP 113/62; PULSE 78; RESP 18; TEMP 36.8; O2SAT 92
[2023-07-04] MEDS: predniSONE 20 MG TABLET PO (07:39)
[2023-07-04] MEDS: MULTIVITAMIN/MINERALS 1 TABLET 1 TAB PO (09:05)
[2023-07-04] MEDS: METOPROLOL SUCCINATE (XL) 25 MG TAB PO (09:05)
[2023-07-04] MEDS: SODIUM CHLORIDE 0.9 % (FLUSH) 10 ML SYRINGE 5 ML IVF ×2 (09:05→20:47)
[2023-07-04] MEDS: FOLIC ACID 1 MG TABLET PO (09:05)
[2023-07-04] MEDS: THIAMINE 100 MG TABLET 500 MG PO (09:05)
[2023-07-04 09:06] VITALS: BMI 16.6
[2023-07-04 11:00] VITALS: BP 113/67; PULSE 71; RESP 18; TEMP 36.5; O2SAT 96
--- NOTE | 2023-07-04 13:49 | PM.IMPN1 ---
Progress Note: A&P Assessment and plan (1) Pneumonia: Problem details: Clinically he appears to be modestly improved today - h/o aspiration pneumonia, previously on dysphagia diet, consult speech therapy for swallow evaluation. - Admit for treatment. Start ceftriaxone/azithromycin. - Will need outpatient follow up imaging, has h/o pulm nodules, chronic smoker Status: Acute (2) Failure to thrive: Problem details: Recurrent hospitalizations with Failure to thrive with generalized weakness, increased falls, severe malnutrition, dysphagia, and weight loss. Transitional care on discharge. Status: Chronic (3) COPD (chronic obstructive pulmonary disease): Problem details: - PRN nebs - Add prednisone for 3-5 days Status: Chronic (4) Protein calorie malnutrition: Problem details: - Dietary supplementation - Nutrition consult Status: Acute (5) Hypertension: Problem details: Amlodipine, atenolol. 01/18/2013 amlodipine discontinued due to low blood pressure. December 2012: Cardiology recommended switch of atenolol to coreg and initiation of lisinopril. May 2022: Added back amlodipine. Jun 2022: Doubled amlodipine to 10mg. 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 Shaw Jul 2012. ~ Since 1979, intermittent, tonic clonic, had normal EEG at [facility] [place]. Never been on Medications. Seizure vs Alcohol withdrawal or both. ~ September 2012: Follow up with Dr. Shaw, increased Keppra to 1000 mg twice daily. November 2020: Dr. Van Martinez consult in Neurology, restarted Keppra, Patient was off seizure medication for about 3 years. Last seizure was 1 year ago. Last alcohol was 1 year ago also Status: Chronic (7) Weakness: Problem details: - Acute on chronic - Dr. Begum's note 07/22/22: When asked him to stand he is able to stand up on his own but needs to push up with his arms on a wheelchair. He is able to stand with holding onto something more for balance and weakness. After standing for less than a minute he said his legs were getting tired and needed to sit down. - PT and OT consult - Consult SW as I suspect he will need rehab stay Status: Acute (8) Cerebral vascular disease: Problem details: Small vessel ischemic disease, old lacunar infarcts on head CT 01/2019 Status: Acute (9) Pulmonary nodule: Problem details: 07/02/23 CXR: Increased hazy lung markings in the left lung base and left upper lobe, could represent multilobar pneumonia in the correct clinical setting, or scarring/fibrotic changes. New dense pulmonary nodule in the left midlung frontal image. While this could represent nodular consolidation in the setting of infection, a pulmonary nodule or calcified granuloma could appear similar. Recommend follow-up imaging after treatment to ensure resolution. Status: Suspected (10) Parkinson disease: Problem details: Diagnosis made in [place]. Clinically does not obvious Parkinson's disease. Also did not respond to Sinemet. Status: Acute (11) Colonic thickening: Problem details: Seen on CT Scan [facility] [place], [place] recommended, pt decliend Status: Acute (12) Alcohol abuse: Problem details: Stop drinking about June 2022. Status: Acute (13) Homelessness: Problem details: Currently living with his brother but concerned that this is a unacceptable of living arrangement. History of intermittent homelessness Status: Acute (14) Tobacco use disorder: Problem details: Declines nicotine replacement. Not interested in stopping smoking Status: Acute (15) Dysphagia: Problem details: 01/2019: DDL2 with thin liquids Status: Acute (16) Empyema of lung: Problem details: 01/04/2019 [place]: Left pleural space; Large left-sided pleural effusion with loculated empyema with streptococcus intermedius. Treated conservatively with chest tube, tissue plasminogen activator, and IV Rocephin. Status: Acute (17) Anemia in chronic illness: Problem details: 01/13/2013 Hemoglobin 11.2 01/14/2013 9.1. Ferritin level 3971 05/27/2022 Hgb 15.9 Status: Acute Plan Continue treatment of pneumonia, evaluation of chronic medical problems. Likely needs fdc facility at discharge. Time Spent With Patient Total time spent: Total time spent is 40 minutes, 30 minutes in coordination of care and discussing with patient other providers ongoing evaluation management of pneumonia, disabilities and disposition Subjective Date Seen: 07/04/23 Interval history: 67-year-old male with COPD, heart failure with reduced ejection fraction, history of left empyema, seizure disorder, Parkinson's disease, malnutrition and previous strokes presents for profound weakness. Patient notes the primary problem that developed yesterday was his legs were so weak he could not walk. Paramedics were unable to get him to walk to the ambulance and they had to carry him on a stretcher. Longstanding history of problems with failure to thrive due to multiple reasons. Multiple hospitalizations where he has been diagnosed with pneumonia and empyema and encephalopathy and complications of alcohol abuse and renal failure and heart failure. These often lead to a rehab stay at a TCU. Eventually he leaves the TCU and continues on a pattern that leads to further failure. He has been largely not compliant with most of his medications though at this time he reports taking 2 blood pressure medicines and 1 inhaler. Not taking medicines for seizure treatment or Parkinson's. Patient tells me that his weakness was acute onset in the last day but he does note that he falls a lot at home and he thinks his brother is no longer able to care for him in the home. He lives in his brother's home which he says is a very old home, greater than 100 years old, and has small hallways and R-waves and has no room for him to have a walker. He tells me his brother cooks for him and they eat 1 meal a day. Outside of that meal he does do some snacking. He tells me he is getting enough to eat and that there is no food insecurity. Uncertain of that quality of the food that he is receiving. A longstanding history of alcohol abuse which is likely contributing to many of his problems. He reports he stop drinking about a year ago. Longstanding history of smoking cigarettes which he continues to smoke a pack a day. He has no interest in stopping or in nicotine replacement. He has COPD and has been on chronic oxygen in the past but not recently. He was hospitalized at [facility] with a left-sided empyema December of 2018 this was treated with chest tube drainage and lytics. Recurrent hospitalizations for pneumonia with a history of aspiration pneumonia and swallowing evaluation suggesting swallowing difficulties. He has had dietary recommendations to manage this in the past but is not following any restrictions in the food and liquid consistency. He has a history of heart failure with reduced ejection fraction. The last echo I can find reference to his from 2017 showing an ejection fraction of 25%. Also chronic left bundle branch block. He has been treated with heart failure medicines in the past but discontinued all of them except metoprolol. He has had a remote history of acute kidney injury with a creatinine greater than 10. This was thought to be due to volume depletion and malnutrition. This resolved with hydration. He has had a history of seizures. EEG showed a focus of epilepsy in the right parietal area. He has been repeatedly treated with Keppra and repeatedly has stop taking it. He has not had any Keppra for 2 or 3 years. His last seizure was a year ago He was diagnosed with Parkinson's disease in [place] 2 or 3 years ago. He was treated with Sinemet which was of no help. It is not clear based on observation today that he actually has Parkinson's disease. He has been diagnosed with depression in the past and started on antidepressant but he has discontinue that. At the time of this admission he was thought to have a left-sided pneumonia. Started on a Zithromax and ceftriaxone for community-acquired pneumonia. He is given prednisone for COPD and inhaled bronchodilators as well. He started on oxygen. Overnight he has appeared to wean off of the oxygen though O2 sats still drop into the upper 80s. He reports feeling quite a bit better today. Nursing staff note that his blood pressure is been low overnight and that his urine output has been low overnight. Day 2: He is weaned off oxygen. He reports being quite unsteady on his feet. His appetite is not very good in his diet has been low quality foods, snack foods. No BM Exam Narrative: Exam Narrative: He is alert and more interactive today. Speech is normal. Respirations: Left base as an occasional crackle. He has diminished breath sounds throughout, no significant wheezing. Cardiovascular: S1, S2, relatively regular rhythm. Abdomen is soft without tenderness or mass. Const: Vital Signs, click to edit/add: Vital Signs - 24 hr 07/03/23 15:50 07/03/23 15:50 07/03/23 15:50 Temperature Pulse Rate 71 Pulse Rate [Pulse Oximeter] 73 Respiratory Rate 18 18 Blood Pressure [Le ft Arm] Pulse Oximetry 96 Oxygen Delivery Me thod Room Air Oxygen Flow Rate 07/03/23 15:50 07/03/23 19:20 07/03/23 23:00 Temperature 97.6 F 97.9 F Pulse Rate 84 Pulse Rate [Pulse Oximeter] 73 79 Respiratory Rate 18 18 Blood Pressure [Le ft Arm] 107/65 111/65 Pulse Oximetry 96 92 Oxygen Delivery Me thod Room Air Room Air Oxygen Flow Rate 07/03/23 23:00 07/03/23 23:00 07/03/23 23:00 Temperature 98 F Pulse Rate Pulse Rate [Pulse Oximeter] 76 Respiratory Rate 18 18 18 Blood Pressure [Le ft Arm] 93/54 L Pulse Oximetry 93 93 Oxygen Delivery Me thod Room Air Room Air Oxygen Flow Rate 07/04/23 03:00 07/04/23 07:35 07/04/23 07:35 Temperature 97.6 F 98.3 F Pulse Rate Pulse Rate [Pulse Oximeter] 77 78 Respiratory Rate 18 18 18 Blood Pressure [Le ft Arm] 108/63 113/62 Pulse Oximetry 92 92 92 Oxygen Delivery Me thod Room Air Room Air Room Air Oxygen Flow Rate 0 0 07/04/23 11:00 Temperature 97.7 F Pulse Rate Pulse Rate [Pulse Oximeter] 71 Respiratory Rate 18 Blood Pressure [Le ft Arm] 113/67 Pulse Oximetry 96 Oxygen Delivery Me thod Room Air Oxygen Flow Rate Documenting provider has reviewed patient's vital signs: yes Labs Labs: Laboratory Results - last 24 hr 07/04/23 05:36 WBC 9.20 RBC 4.13 L Hgb 11.9 L Hct 37.2 MCV 90 MCH 29 MCHC 32 RDW Coeff of Karolyn 13.1 Plt Count 260 Neut % (Auto) 79.0 H Lymph % (Auto) 13.3 L [place] % (Auto) 7.1 Eos % (Auto) 0.0 Baso % (Auto) 0.1 Neut # (Auto) 7.30 H Lymph # (Auto) 1.20 [place] # (Auto) 0.70 Eos # (Auto) 0.00 Baso # (Auto) 0.01 Abs Immat Gran (auto) 0.05 Imm/Tot Granulo (auto) 0.5 Sodium 142 Potassium 3.8 Chloride 104 Carbon Dioxide 30 Anion Gap 8 BUN 15 Creatinine 0.9 Estimated Creat Clear 48.86 Estimated GFR 94 Glucose 118 H Calcium 9.6 C-Reactive Protein 21.2 H
--- NOTE | 2023-07-04 14:46 | PC.SOCIAL ---
Addendum entered by Jacqueline Sweeney [employer] 07/04/23 16:01: Received call back from [facility] stating they can assess pt and faxed requested information for evaluation. Received call back from [facility], stating they are declining admission due to pt being a smoker and not allowing smoking in their facility. Even if pt agrees not to smoke in their facility, they will not admit an active smoker at this time. Awaiting call back from [facility]. Original Note: Discharge planning: Met with pt regarding discharge plan. Pt is requesting placement for short term rehab at [facility] in [place] or a facility in [place]. Called [facility] in [place] and there are no beds available. Called [facility] and [facility] communities and left messages requesting call back regarding bed availability. Faxed information to [facility] in [place]. group worker to follow up as needed.
[2023-07-04 15:00] VITALS: BP 110/63; PULSE 69; RESP 18; TEMP 36.5; O2SAT 95
--- NOTE | 2023-07-04 17:47 | PC.NURSE ---
Pt alert and oriented. Pt had no complaints of pain. VSS. Pt uses urinal independently at bedside. Pt refused breakfast and lunch; agreed to order food around 1530. Pt refused any Nutritional supplements due to them giving him loose stools. Pt takes medications whole.?
[2023-07-04 19:00] VITALS: BP 133/63; PULSE 82; RESP 18; TEMP 36.3; O2SAT 94
[2023-07-04] MEDS: ENOXAPARIN 40 MG/0.4 ML INJ SUBCUT (20:47)
[2023-07-04] MEDS: AZITHROMYCIN 250 MG TABLET 500 MG PO (20:47)
[2023-07-04] MEDS: cefTRIAXone 1 GM in 0.9 % SODIUM CHLORIDE Mini-bag 100 ML IVPB (21:39)
--- NOTE | 2023-07-04 22:29 | PC.NURSE ---
Alert and oriented x 4. Denies any pain. Intermittent moist cough, unable to bring sputum up. Denies any shortness of breath at rest but states he does have it with exertion. Patient appears frail and cachectic, declines ensure stating it gives him loose stools, did take a cup of ice cream and antione crackers for snack.
[2023-07-04 23:00] VITALS: BP 112/56; PULSE 68; RESP 18; TEMP 36.4; O2SAT 93
[2023-07-05] VITALS (8 sets, daily range): BP systolic 120–159; BP diastolic 62–80; PULSE 60–84; RESP 16–22; TEMP 36.4–36.9; O2SAT 92–98
[2023-07-05] MEDS: IPRAT-ALBUT 0.5-2.5 MG/3 ML NEB 1 NEB IH ×4 (05:57→22:57)
--- NOTE | 2023-07-05 06:32 | PC.NURSE ---
SHIFT NOTE 23-: Uneventful night. Pt is A&O. Denies pain, SOB, CP, and N/V. Used the urinal in bed overnight. VSS on RA.
[2023-07-05 06:44] LABS: Basophils Absolute Auto 0.01 K/uL (0.00-0.30); Basophils Percent Auto 0.1 % (0.0-3.0); Eosinophils Absolute Auto 0.01 K/uL (0.00-0.50); Eosinophils Percent Auto 0.1 % (0.0-7.0); Hemoglobin* 11.9 gm/dL (13.5-17.5); Immature Granulocytes Abs Auto 0.06 K/uL (0.00-0.30); Immature Granulocytes Pct Auto 0.7 %; Lymphocytes Percent Auto 19.2 % (20-44); Mean Corpuscular HGB Conc 32 gm/dL (32-36); Mean Corpuscular Hemoglobin 29 pg (26-34); Mean Corpuscular Volume 91 fL (80-100); Monocytes Percent Auto 5.4 % (0.0-11.0); Neutrophils Percent Auto 74.5 % (42.0-72.0); Platelet Count* 282 K/uL (140-440); RDW Coefficient of Variation % 13.1 % (11.5-15.5); Red Blood Count 4.06 m/uL (4.30-5.90); White Blood Count* 8.03 K/uL (4.50-11.00)
[2023-07-05 06:47] LABS: Slide Review Reflex No
[2023-07-05 06:52] LABS: Chloride* 101 mmol/L (96-114); Potassium* 3.2 mmol/L (3.6-5.1); Sodium* 140 mmol/L (135-149)
[2023-07-05 06:55] LABS: Creatinine* 0.9 mg/dL (0.5-1.5); Est. Creatinine Clearance* 48.86; Estimated Glomerular Filt Rate 94 ml/min
[2023-07-05 06:56] LABS: Anion Gap 8 mEq/L (7-15); Blood Urea Nitrogen* 10 mg/dL (7-30); Calcium* 9.4 mg/dL (8.4-10.6); Carbon Dioxide* 31 mmol/L (20-32); Glucose* 93 mg/dL (60-115)
[2023-07-05 06:58] LABS: C Reactive Protein* 7.9 mg/dL (0.5-1.0)
[2023-07-05] MEDS: predniSONE 20 MG TABLET PO (07:29)
[2023-07-05] MEDS: MULTIVITAMIN/MINERALS 1 TABLET 1 TAB PO (08:46)
[2023-07-05] MEDS: THIAMINE 100 MG TABLET 500 MG PO (08:46)
[2023-07-05] MEDS: FOLIC ACID 1 MG TABLET PO (08:47)
[2023-07-05] MEDS: METOPROLOL SUCCINATE (XL) 25 MG TAB PO (08:47)
[2023-07-05] MEDS: SODIUM CHLORIDE 0.9 % (FLUSH) 10 ML SYRINGE 5 ML IVF ×2 (08:48→20:15)
--- NOTE | 2023-07-05 13:27 | PC.SOCIAL ---
Discharge planning: Called [facility] and [facility] and left message asking if they received the faxed referral yesterday and for a decision on admit. Called [facility] and spoke with admitting who stated they can not accept a pt who is a smoker. Called [facility] and spoke with admissions. THis facility has an outside smoking are that residents can use if they are independent in getting to it and smoking on their own. Faxed referral for evaluation for admit. drug department worker to follow up as needed.
[2023-07-05] MEDS: POTASSIUM BICARB 25 MEQ EFFERVESCENT TAB 50 MEQ PO (13:59)
--- NOTE | 2023-07-05 14:24 | PC.NURSE ---
End of Shift: Patient pleasant and cooperative, A/O. Patient vitally stable, lungs diminished, BS WNL, IV intact. Patient denies pain. Patient 1 assist/walker, gb. Patient ate 50% of breakfast, otherwise patient has declined lunch and snacks. Patient drinking fluids and urinating by urinal. No BM this shift. Patient up in chair majority of shift. Patient did eat some antione crackers for a snack.
--- NOTE | 2023-07-05 14:31 | P.IMPN_ITS ---
Progress Note: A&P Assessment and plan (1) Pneumonia: Problem details: Clinically he appears to be modestly improved today - h/o aspiration pneumonia, previously on dysphagia diet, consult speech therapy for swallow evaluation. - Admit for treatment. Start ceftriaxone/azithromycin. - Will need outpatient follow up imaging, has h/o pulm nodules, chronic smoker Status: Acute (2) Failure to thrive: Problem details: Recurrent hospitalizations with failure to thrive and generalized weakness, increased falls, severe malnutrition, dysphagia, and weight loss. Transitional care on discharge. Status: Chronic (3) COPD (chronic obstructive pulmonary disease): Problem details: - PRN nebs - Add prednisone for 3-5 days Status: Chronic (4) Protein calorie malnutrition: Problem details: - Dietary supplementation - Nutrition consult Status: Acute (5) Hypertension: Problem details: Amlodipine, atenolol. 01/18/2013 amlodipine discontinued due to low blood pressure. December 2012: Cardiology recommended switch of atenolol to coreg and initiation of lisinopril. May 2022: Added back amlodipine. Jun 2022: Doubled amlodipine to 10mg. 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 Shaw Jul 2012. ~ Since 1979, intermittent, tonic clonic, had normal EEG [place] [facility] [place]. Never been on Medications. Seizure vs Alcohol withdrawal or both. ~ September 2012: Follow up with Dr. Shaw, increased Keppra to 1000 mg twice daily. November 2020: Dr. Van Martinez consult in Neurology, restarted Keppra, Patient was off seizure medication for about 3 years. Last seizure was 1 year ago. Last alcohol was 1 year ago also Status: Chronic (7) Weakness: Problem details: - Acute on chronic - Dr. Begum's note 07/22/22: When asked him to stand he is able to stand up on his own but needs to push up with his arms on a wheelchair. He is able to stand with holding onto something more for balance and weakness. After standing for less than a minute he said his legs were getting tired and needed to sit down. - PT and OT consult - Consult SW as I suspect he will need rehab stay Status: Acute (8) Cerebral vascular disease: Problem details: Small vessel ischemic disease, old lacunar infarcts on head CT 01/2019 Status: Acute (9) Pulmonary nodule: Problem details: 07/02/23 CXR: Increased hazy lung markings in the left lung base and left upper lobe, could represent multilobar pneumonia in the correct clinical setting, or scarring/fibrotic changes. New dense pulmonary nodule in the left midlung frontal image. While this could represent nodular consolidation in the setting of infection, a pulmonary nodule or calcified granuloma could appear similar. Recommend follow-up imaging after treatment to ensure resolution. Status: Suspected (10) Parkinson disease: Problem details: Diagnosis made in [place]. Clinically does not obvious Parkinson's disease. Also did not respond to Sinemet. Status: Acute (11) Colonic thickening: Problem details: Seen on CT Scan [facility], Colonosc[place]p recommended, pt decliend Status: Acute (12) Alcohol abuse: Problem details: Stop drinking about June 2022. Multiple problems appear to be sequela lie of drinking but not due to current alcohol abuse. No signs of withdrawal. Status: Acute (13) Homelessness: Problem details: Currently living with his brother but concerned that this is a unacceptable of living arrangement. History of intermittent homelessness Status: Acute (14) Tobacco use disorder: Problem details: Declines nicotine replacement. Not interested in stopping smoking Status: Acute (15) Dysphagia: Problem details: 01/2019: DDL2 with thin liquids Status: Acute (16) Empyema of lung: Problem details: 01/04/2019 [place]: Left pleural space; Large left-sided pleural effusion with loculated empyema with streptococcus intermedius. Treated conservatively with chest tube, tissue plasminogen activator, and IV Rocephin. Status: Acute (17) Anemia in chronic illness: Problem details: 01/13/2013 Hemoglobin 11.2 01/14/2013 9.1. Ferritin level 3971 05/27/2022 Hgb 15.9 Status: Acute Plan Continue in hospital for treatment of pneumonia. Evaluate and treat significant disabilities. Likely needs halfway facility for rehab. Time Spent With Patient Total time spent: Total time spent today is 40 minutes, 30 minutes in coordination of care discussing with patient and other providers ongoing evaluation and management pneumonia and disabilities Subjective Date Seen: 07/05/23 Interval history: 67-year-old male with COPD, heart failure with reduced ejection fraction, history of left empyema, seizure disorder, Parkinson's disease, malnutrition and previous strokes presents for profound weakness. Patient notes the primary problem that developed yesterday was his legs were so weak he could not walk. Paramedics were unable to get him to walk to the ambulance and they had to carry him on a stretcher. Longstanding history of problems with failure to thrive due to multiple reasons. Multiple hospitalizations where he has been diagnosed with pneumonia and empyema and encephalopathy and complications of alcohol abuse and renal failure and heart failure. These often lead to a rehab stay at a TCU. Eventually he leaves the TCU and continues on a pattern that leads to further failure. He has been largely not compliant with most of his medications though at this time he reports taking 2 blood pressure medicines and 1 inhaler. Not taking medicines for seizure treatment or Parkinson's. Patient tells me that his weakness was acute onset in the last day but he does note that he falls a lot at home and he thinks his brother is no longer able to care for him in the home. He lives in his brother's home which he says is a very old home, greater than 100 years old, and has small hallways and R-waves and has no room for him to have a walker. He tells me his brother cooks for him and they eat 1 meal a day. Outside of that meal he does do some snacking. He tells me he is getting enough to eat and that there is no food insecurity. Uncertain of that quality of the food that he is receiving. A longstanding history of alcohol abuse which is likely contributing to many of his problems. He reports he stop drinking about a year ago. Longstanding history of smoking cigarettes which he continues to smoke a pack a day. He has no interest in stopping or in nicotine replacement. He has COPD and has been on chronic oxygen in the past but not recently. He was hospitalized at [facility] with a left-sided empyema December of 2018 this was treated with chest tube drainage and lytics. Recurrent hospitalizations for pneumonia with a history of aspiration pneumonia and swallowing evaluation suggesting swallowing difficulties. He has had dietary recommendations to manage this in the past but is not following any restrictions in the food and liquid consistency. He has a history of heart failure with reduced ejection fraction. The last echo I can find reference to his from 2017 showing an ejection fraction of 25%. Also chronic left bundle branch block. He has been treated with heart failure medicines in the past but discontinued all of them except metoprolol. He has had a remote history of acute kidney injury with a creatinine greater than 10. This was thought to be due to volume depletion and malnutrition. This resolved with hydration. He has had a history of seizures. EEG showed a focus of epilepsy in the right parietal area. He has been repeatedly treated with Keppra and repeatedly has stop taking it. He has not had any Keppra for 2 or 3 years. His last seizure was a year ago He was diagnosed with Parkinson's disease in [place] 2 or 3 years ago. He was treated with Sinemet which was of no help. It is not clear based on observation today that he actually has Parkinson's disease. He has been diagnosed with depression in the past and started on antidepressant but he has discontinue that. At the time of this admission he was thought to have a left-sided pneumonia. Started on a Zithromax and ceftriaxone for community-acquired pneumonia. He is given prednisone for COPD and inhaled bronchodilators as well. He started on oxygen. Overnight he has appeared to wean off of the oxygen though O2 sats still drop into the upper 80s. He reports feeling quite a bit better today. Nursing staff note that his blood pressure is been low overnight and that his urine output has been low overnight. Day 2: He is weaned off oxygen. He reports being quite unsteady on his feet. His appetite is not very good in his diet has been low quality foods, snack food s. No BM Day 3. Remains off oxygen. Still quite unsteady on his feet. Still coughing but no fever. Poor appetite and not eating reliably nutritious foods. Exam Narrative: Exam Narrative: He is alert and appears in no distress. Speech is normal. Respirations are clear to auscultation with marked diminished breath sounds. No wheezing rales or rhonchi. Cardiovascular: S1, S2, regular rate and rhythm. Abdomen is soft without tenderness or mass. Extremities with diffuse loss of muscle mass without focal weakness. Minimal tremor. Const: Vital Signs, click to edit/add: Vital Signs - 24 hr 07/04/23 15:00 07/04/23 15:00 07/04/23 19:00 Temperature 97.7 F 97.4 F L Pulse Rate [Pulse Oximeter] 69 82 Respiratory Rate 18 18 18 Blood Pressure [Le ft Arm] 110/63 133/63 Blood Pressure [Ri ght Arm] Pulse Oximetry 95 95 94 Oxygen Delivery Me thod Room Air Room Air Room Air Oxygen Flow Rate 0 0 07/04/23 23:00 07/04/23 23:00 07/04/23 23:00 Temperature 97.6 F Pulse Rate [Pulse Oximeter] 68 Respiratory Rate 18 18 18 Blood Pressure [Le ft Arm] 112/56 L Blood Pressure [Ri ght Arm] Pulse Oximetry 93 93 Oxygen Delivery Me thod Room Air Room Air Oxygen Flow Rate 0 0 07/05/23 03:00 07/05/23 07:38 07/05/23 07:38 Temperature 98.3 F Pulse Rate [Pulse Oximeter] 60 71 71 Respiratory Rate 16 20 20 Blood Pressure [Le ft Arm] 125/65 Blood Pressure [Ri ght Arm] Pulse Oximetry 92 94 Oxygen Delivery Me thod Room Air Room Air Oxygen Flow Rate 07/05/23 07:38 07/05/23 11:00 Temperature 97.6 F Pulse Rate [Pulse Oximeter] 68 Respiratory Rate 20 20 Blood Pressure [Le ft Arm] Blood Pressure [Ri ght Arm] 122/65 Pulse Oximetry 94 94 Oxygen Delivery Me thod Room Air Room Air Oxygen Flow Rate 0 Documenting provider has reviewed patient's vital signs: yes Labs Labs: Laboratory Results - last 24 hr 07/05/23 06:15 WBC 8.03 RBC 4.06 L Hgb 11.9 L Hct 37.0 MCV 91 MCH 29 MCHC 32 RDW Coeff of Karolyn 13.1 Plt Count 282 Neut % (Auto) 74.5 H Lymph % (Auto) 19.2 L [place] % (Auto) 5.4 Eos % (Auto) 0.1 Baso % (Auto) 0.1 Neut # (Auto) 6.00 Lymph # (Auto) 1.50 [place] # (Auto) 0.40 Eos # (Auto) 0.01 Baso # (Auto) 0.01 Abs Immat Gran (auto) 0.06 Imm/Tot Granulo (auto) 0.7 Sodium 140 Potassium 3.2 L Chloride 101 Carbon Dioxide 31 Anion Gap 8 BUN 10 Creatinine 0.9 Estimated Creat Clear 48.86 Estimated GFR 94 Glucose 93 Calcium 9.4 C-Reactive Protein 7.9 H
--- NOTE | 2023-07-05 14:53 | P.IMHP_ITS ---
Hospitalist- H&P: HPI History of Present Illness Date Seen: 07/05/23 Chief complaint: weakness Narrative: Levy Argueta is a 67 year old male [facility] Medical History (Updated 07/05/23 @ 14:34 by Patel Martinez MD) UTI (urinary tract infection) ?N39.0 - Urinary tract infection, site not specified (ICD-10) Sepsis with acute hypoxic respiratory failure ?A41.9 - Sepsis, unspecified organism (ICD-10) ?R65.20 - Severe sepsis without septic shock (ICD-10) ?J96.01 - Acute respiratory failure with hypoxia (ICD-10) Malnourished ?E46 - Unspecified protein-calorie malnutrition (ICD-10) Dysphagia ?R13.10 - Dysphagia, unspecified (ICD-10) Cerebral vascular disease ?I67.9 - Cerebrovascular disease, unspecified (ICD-10) Failure to thrive COPD (chronic obstructive pulmonary disease) ?J44.9 - Chronic obstructive pulmonary disease, unspecified (ICD-10) Empyema of lung ?J86.9 - Pyothorax without fistula (ICD-10) POLST (Physician Orders for Life-Sustaining Treatment) ?Z78.9 - Other specified health status (ICD-10) Parkinson disease ?G20 - Parkinson's disease (ICD-10) ARF (acute renal failure) ?N17.9 - Acute kidney failure, unspecified (ICD-10) Colonic thickening ?K63.9 - Disease of intestine, unspecified (ICD-10) Pulmonary nodules ?R91.8 - Other nonspecific abnormal finding of lung field (ICD-10) GERD (gastroesophageal reflux disease) ?K21.9 - Gastro-esophageal reflux disease without esophagitis (ICD-10) Systolic CHF ?I50.20 - Unspecified systolic (congestive) heart failure (ICD-10) Anemia in chronic illness ?D63.8 - Anemia in other chronic diseases classified elsewhere (ICD-10) Aspiration pneumonia ?J69.0 - Pneumonitis due to inhalation of food and vomit (ICD-10) Tobacco use disorder ?F17.200 - Nicotine dependence, unspecified, uncomplicated (ICD-10) Hyponatremia ?E87.1 - Hypo-osmolality and hyponatremia (ICD-10) Alcohol withdrawal syndrome ?F10.939 - Alcohol use, unspecified with withdrawal, unspecified (ICD-10) Abnormal liver function tests (~2012) ?R79.89 - Other specified abnormal findings of blood chemistry (ICD-10) CKD (chronic kidney disease) ?N18.9 - Chronic kidney disease, unspecified (ICD-10) AISHA (obstructive sleep apnea) ?G47.33 - Obstructive sleep apnea (adult) (pediatric) (ICD-10) LBBB (left bundle branch block) ?I44.7 - Left bundle-branch block, unspecified (ICD-10) Homelessness ?Z59.00 - Homelessness unspecified (ICD-10) Cervical spine arthritis ?M47.812 - Spondylosis without myelopathy or radiculopathy, cervical region (ICD-10) Alcohol abuse ?F10.10 - Alcohol abuse, uncomplicated (ICD-10) Hypertension ?I10 - Essential (primary) hypertension (ICD-10) Seizure disorder ?G40.909 - Epilepsy, unspecified, not intractable, without status epilepticus (ICD-10) Surgical History (Updated 07/02/23 @ 21:46 by Shu Vaughan MD) Hx of unilateral orchiectomy ?Z90.79 - Acquired absence of other genital organ(s) (ICD-10) History of lumbar fusion ?Z98.1 - Arthrodesis status (ICD-10) Hx of hernia repair ?Z98.890 - Other specified postprocedural states (ICD-10) ?Z87.19 - Personal history of other diseases of the digestive system (ICD-10) Hx of fusion of cervical spine ?Z98.1 - Arthrodesis status (ICD-10) Family History (Updated 07/02/23 @ 21:48 by Shu Vaughan MD) Brother Colon polyps Diabetes Father Diabetes Heart disease Stroke Social History (Updated 07/02/23 @ 22:43 by Shu Vaughan MD) Narrative: Lives with brother. Smokes 1ppd, rolls his own cigarettes. He is a lifelong alcoholic, was that treatment several times, and stopped drinking completely about 1 year ago. He smokes marijuana at least daily, sometimes several times a day, most recently yesterday, he did not use any today. He confirms that he would like to be DNR/DNI. What is your current living situation?: I have a place to live at present, but am concerned about future Problems where you live: no known problems Problems where you live details: NA In the past 12 months, utilities in danger of being shut off: no In the past 12 mos, have been you worried that your food would run out before you had money to buy more?: never true In the past 12 mos, the food you bought just didn't last and you didn't have money to buy more?: never true Highest level of school completed/degree received: high school graduate Smoking Status: Current every day smoker What tobacco products do you use: cigarettes Smoking packs per day: 1 Smoking cigarettes per day: 20.0 Years smoked: 50 Smoking pack-years: 50.00 Do you use any of these nicotine containing products: None Second hand tobacco smoke exposure: Yes How often do you have a drink containing alcohol: never How often do you have six or more drinks on one occasion: Never AUDIT-C Alcohol total score: 0 Non-prescribed substance use: marijuana (any form) Non-prescribed substance use details: daily Caffeine: No How often does anyone, including family, friends and others, physically hurt you : never How often does anyone, including family, friends and others, insult or talk down to you: never How often does anyone, including family, friends and others, threaten you with harm: never How often does anyone, including family, friends and others, scream or curse at you: never service: No Meds Home Medications and Allergies Home Medications Medication Instructions Recorded Confirmed Type albuterol sulfate 90 mcg/actuation 2 puff inhalation Q4H PRN 07/02/23 07/03/23 History aerosol inhaler amlodipine 10 mg tablet 10 mg PO DAILY blood pressure 07/02/23 07/02/23 History metoprolol tartrate 50 mg tablet 50 mg PO DAILY blood pressure 07/02/23 07/02/23 History Allergies Allergy/AdvReac Type Severity Reaction Status Date / Time fish derived Allergy Verified 07/02/23 19:19 Exam Const: Vital Signs, click to edit/add: Vital Signs - 24 hr 07/04/23 15:00 07/04/23 15:00 07/04/23 19:00 Temperature 97.7 F 97.4 F L Pulse Rate [Pulse Oximeter] 69 82 Respiratory Rate 18 18 18 Blood Pressure [Le ft Arm] 110/63 133/63 Blood Pressure [Ri ght Arm] Pulse Oximetry 95 95 94 Oxygen Delivery Me thod Room Air Room Air Room Air Oxygen Flow Rate 0 0 07/04/23 23:00 07/04/23 23:00 07/04/23 23:00 Temperature 97.6 F Pulse Rate [Pulse Oximeter] 68 Respiratory Rate 18 18 18 Blood Pressure [Le ft Arm] 112/56 L Blood Pressure [Ri ght Arm] Pulse Oximetry 93 93 Oxygen Delivery Me thod Room Air Room Air Oxygen Flow Rate 0 0 07/05/23 03:00 07/05/23 07:38 07/05/23 07:38 Temperature 98.3 F Pulse Rate [Pulse Oximeter] 60 71 71 Respiratory Rate 16 20 20 Blood Pressure [Le ft Arm] 125/65 Blood Pressure [Ri ght Arm] Pulse Oximetry 92 94 Oxygen Delivery Me thod Room Air Room Air Oxygen Flow Rate 07/05/23 07:38 07/05/23 11:00 Temperature 97.6 F Pulse Rate [Pulse Oximeter] 68 Respiratory Rate 20 20 Blood Pressure [Le ft Arm] Blood Pressure [Ri ght Arm] 122/65 Pulse Oximetry 94 94 Oxygen Delivery Me thod Room Air Room Air Oxygen Flow Rate 0 Hospitalist - H&P: Result Labs Labs: Short CBC 07/05/23 Range/Units 06:15 WBC 8.03 (4.50-11.00) K/uL Hgb 11.9 L (13.5-17.5) gm/dL Hct 37.0 (37.0-53.0) % Plt Count 282 (140-440) K/uL BMP 07/05/23 06:15 Sodium 140 Potassium 3.2 L Chloride 101 Carbon Dioxide 31 BUN 10 Creatinine 0.9 Glucose 93 Calcium 9.4
[2023-07-05] MEDS: AZITHROMYCIN 250 MG TABLET 500 MG PO (20:14)
[2023-07-05] MEDS: ENOXAPARIN 40 MG/0.4 ML INJ SUBCUT (20:14)
[2023-07-05] MEDS: cefTRIAXone 1 GM in 0.9 % SODIUM CHLORIDE Mini-bag 100 ML IVPB (22:21)
--- NOTE | 2023-07-05 22:30 | PC.NURSE ---
Pt alert and oriented. Pt had no complaints of pain. VSS. Pt uses urinal independently at bedside. Pt assist of one with walker and gait belt. Pt refused Nutritional supplements due to them giving him loose stools. Pt takes medications whole. Pt in better spirits this shift; joking with staff.?
[2023-07-06] VITALS (7 sets, daily range): BP systolic 113–130; BP diastolic 62–75; PULSE 67–75; RESP 18–22; TEMP 36.4–36.9; O2SAT 93–95; BMI 16.6
--- NOTE | 2023-07-06 05:36 | PC.NURSE ---
[id number]: Patient cooperative with cares. A&Ox3. Denies pain. Chronic SOB at rest. O2 sats>90% RA. Appeared to rest well during noc.
[2023-07-06] MEDS: IPRAT-ALBUT 0.5-2.5 MG/3 ML NEB 1 NEB IH ×4 (06:05→23:02)
[2023-07-06 06:28] LABS: Eosinophils Percent Auto 0.3 % (0.0-7.0); Hematocrit 37.5 % (37.0-53.0); Hemoglobin* 11.9 gm/dL (13.5-17.5); Lymphocytes Percent Auto 26.6 % (20-44); Mean Corpuscular HGB Conc 32 gm/dL (32-36); Mean Corpuscular Hemoglobin 29 pg (26-34); Mean Corpuscular Volume 92 fL (80-100); Neutrophils Percent Auto 62.5 % (42.0-72.0); Platelet Count* 306 K/uL (140-440); RDW Coefficient of Variation % 13.2 % (11.5-15.5); White Blood Count* 7.02 K/uL (4.50-11.00)
[2023-07-06 06:29] LABS: Eosinophils Absolute Auto 0.02 K/uL (0.00-0.50); Immature Granulocytes Abs Auto 0.11 K/uL (0.00-0.30); Immature Granulocytes Pct Auto 1.6 %; Lymphocytes Absolute Auto 1.87 K/uL (0.90-2.90); Neutrophils Absolute Auto 4.39 K/uL (1.7-7.0)
[2023-07-06 06:32] LABS: Slide Review Reflex No
[2023-07-06 06:49] LABS: Chloride* 102 mmol/L (96-114); Potassium* 4.1 mmol/L (3.6-5.1); Sodium* 139 mmol/L (135-149)
[2023-07-06 06:51] LABS: Creatinine* 0.8 mg/dL (0.5-1.5); Est. Creatinine Clearance* 48.86; Estimated Glomerular Filt Rate 97 ml/min
[2023-07-06 06:52] LABS: Anion Gap 5 mEq/L (7-15); Blood Urea Nitrogen* 11 mg/dL (7-30); Carbon Dioxide* 32 mmol/L (20-32); Glucose* 88 mg/dL (60-115)
[2023-07-06 06:53] LABS: Calcium* 9.7 mg/dL (8.4-10.6)
[2023-07-06] MEDS: FOLIC ACID 1 MG TABLET PO (08:33)
[2023-07-06] MEDS: METOPROLOL SUCCINATE (XL) 25 MG TAB PO (08:33)
[2023-07-06] MEDS: MULTIVITAMIN/MINERALS 1 TABLET 1 TAB PO (08:33)
[2023-07-06] MEDS: THIAMINE 100 MG TABLET 500 MG PO (08:33)
[2023-07-06] MEDS: SODIUM CHLORIDE 0.9 % (FLUSH) 10 ML SYRINGE 5 ML IVF ×2 (08:34→20:29)
--- NOTE | 2023-07-06 12:17 | PM.IMPN1 ---
Progress Note: A&P Assessment and plan (1) Acute and chronic respiratory failure with hypoxia: Problem details: Likely pneumonia complicating underlying COPD. Not obviously heart failure causing hypoxia currently. Now improved and off oxygen Status: Acute (2) Pneumonia: Problem details: Clinically he appears to be modestly improved today - h/o aspiration pneumonia, previously on dysphagia diet, consult speech therapy for swallow evaluation. - Admit for treatment. Start ceftriaxone/azithromycin. - Will need outpatient follow up imaging, has h/o pulm nodules, chronic smoker Status: Acute (3) Sepsis with acute hypoxic respiratory failure: Problem details: Sepsis clinically resolved Status: Acute (4) UTI (urinary tract infection): Problem details: MSSA. Treat with cephalexin Status: Acute (5) Systolic CHF: Problem details: Echocardiogram in 2012 and 2016 showed ejection fraction around 25%. 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 Ferritin level 3971 05/27/2022 Hgb 15.9 Status: Acute (8) Tobacco use disorder: Problem details: Declines nicotine replacement. Not interested in stopping smoking Status: Acute (9) Homelessness: Problem details: Currently living with his brother but concerned that this is a unacceptable of living arrangement. History of intermittent homelessness Status: Acute (10) Alcohol abuse: Problem details: Stop drinking about June 2022. Multiple problems appear to be sequela lie of drinking but not due to current alcohol abuse. No signs of withdrawal. Status: Acute (11) Colonic thickening: Problem details: Seen on CT Scan [facility], Colonoscoyp recommended, pt decliend Status: Acute (12) Empyema of lung: Problem details: 01/04/2019 Childs: Left pleural space; Large left-sided pleural effusion with loculated empyema with streptococcus intermedius. Treated conservatively with chest tube, tissue plasminogen activator, and IV Rocephin. Status: Acute (13) Cerebral vascular disease: Problem details: Small vessel ischemic disease, old lacunar infarcts on head CT 01/2019 Status: Acute (14) Failure to thrive: Problem details: Recurrent hospitalizations with failure to thrive and generalized weakness, increased falls, severe malnutrition, dysphagia, and weight loss. Transitional care on discharge. Status: Chronic (15) COPD (chronic obstructive pulmonary disease): Problem details: - PRN nebs - Add prednisone for 3-5 days Status: Chronic (16) Pulmonary nodule: Problem details: 07/02/23 CXR: Increased hazy lung markings in the left lung base and left upper lobe, could represent multilobar pneumonia in the correct clinical setting, or scarring/fibrotic changes. New dense pulmonary nodule in the left midlung frontal image. While this could represent nodular consolidation in the setting of infection, a pulmonary nodule or calcified granuloma could appear similar. Recommend follow-up imaging after treatment to ensure resolution. Status: Suspected (17) Protein calorie malnutrition: Problem details: - Dietary supplementation - Nutrition consult Status: Acute (18) Hypertension: Problem details: Amlodipine, atenolol. 01/18/2013 amlodipine discontinued due to low blood pressure. December 2012: Cardiology recommended switch of atenolol to coreg and initiation of lisinopril. May 2022: Added back amlodipine. Jun 2022: Doubled amlodipine to 10mg. 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 Shaw Jul 2012. ~ Since 1979, intermittent, tonic clonic, had normal EEG at [facility]. Never been on Medications. Seizure vs Alcohol withdrawal or both. ~ September 2012: Follow up with Dr. Shaw, increased Keppra to 1000 mg twice daily. November 2020: Dr. Van Martinez consult in Neurology, restarted Keppra, Patient was off seizure medication for about 3 years. Last seizure was 1 year ago. Last alcohol was 1 year ago also Status: Chronic (20) Weakness: Problem details: - Acute on chronic - Dr. Begum's note 07/22/22: When asked him to stand he is able to stand up on his own but needs to push up with his arms on a wheelchair. He is able to stand with holding onto something more for balance and weakness. After standing for less than a minute he said his legs were getting tired and needed to sit down. - PT and OT consult - Consult SW as I suspect he will need rehab stay Status: Acute Plan Continue in-hospital for treatment of infections, COPD, disability pending safe discharge plan, long term facility. Time Spent With Patient Total time spent: Total time spent today is 45 minutes, 30 minutes in coordination of care discussing with patient other providers management of hypoxia, weakness and disposition plan Subjective Date Seen: 07/06/23 Interval history: 67-year-old male with COPD, heart failure with reduced ejection fraction, history of left empyema, seizure disorder, Parkinson's disease, malnutrition and previous strokes presents for profound weakness. Patient notes the primary problem that developed yesterday was his legs were so weak he could not walk. Paramedics were unable to get him to walk to the ambulance and they had to carry him on a stretcher. Longstanding history of problems with failure to thrive due to multiple reasons. Multiple hospitalizations where he has been diagnosed with pneumonia and empyema and encephalopathy and complications of alcohol abuse and renal failure and heart failure. These often lead to a rehab stay at a TCU. Eventually he leaves the TCU and continues on a pattern that leads to further failure. He has been largely not compliant with most of his medications though at this time he reports taking 2 blood pressure medicines and 1 inhaler. Not taking medicines for seizure treatment or Parkinson's. Patient tells me that his weakness was acute onset in the last day but he does note that he falls a lot at home and he thinks his brother is no longer able to care for him in the home. He lives in his brother's home which he says is a very old home, greater than 100 years old, and has small hallways and R-waves and has no room for him to have a walker. He tells me his brother cooks for him and they eat 1 meal a day. Outside of that meal he does do some snacking. He tells me he is getting enough to eat and that there is no food insecurity. Uncertain of that quality of the food that he is receiving. A longstanding history of alcohol abuse which is likely contributing to many of his problems. He reports he stop drinking about a year ago. Longstanding history of smoking cigarettes which he continues to smoke a pack a day. He has no interest in stopping or in nicotine replacement. He has COPD and has been on chronic oxygen in the past but not recently. He was hospitalized at [facility] with a left-sided empyema December of 2018 this was treated with chest tube drainage and lytics. Recurrent hospitalizations for pneumonia with a history of aspiration pneumonia and swallowing evaluation suggesting swallowing difficulties. He has had dietary recommendations to manage this in the past but is not following any restrictions in the food and liquid consistency. He has a history of heart failure with reduced ejection fraction. The last echo I can find reference to his from 2017 showing an ejection fraction of 25%. Also chronic left bundle branch block. He has been treated with heart failure medicines in the past but discontinued all of them except metoprolol. He has had a remote history of acute kidney injury with a creatinine greater than 10. This was thought to be due to volume depletion and malnutrition. This resolved with hydration. He has had a history of seizures. EEG showed a focus of epilepsy in the right parietal area. He has been repeatedly treated with Keppra and repeatedly has stop taking it. He has not had any Keppra for 2 or 3 years. His last seizure was a year ago He was diagnosed with Parkinson's disease in [place] 2 or 3 years ago. He was treated with Sinemet which was of no help. It is not clear based on observation today that he actually has Parkinson's disease. He has been diagnosed with depression in the past and started on antidepressant but he has discontinue that. At the time of this admission he was thought to have a left-sided pneumonia. Started on a Zithromax and ceftriaxone for community-acquired pneumonia. He is given prednisone for COPD and inhaled bronchodilators as well. He started on oxygen. Overnight he has appeared to wean off of the oxygen though O2 sats still drop into the upper 80s. He reports feeling quite a bit better today. Nursing staff note that his blood pressure is been low overnight and that his urine output has been low overnight. Day 2: He is weaned off oxygen. He reports being quite unsteady on his feet. His appetite is not very good in his diet has been low quality foods, snack foods. No BM Day 3. Remains off oxygen. Still quite unsteady on his feet. Still coughing but no fever. Poor appetite and not eating reliably nutritious foods. Day 4: Reports his condition is about the same. Not needing oxygen. Cough is maybe a little better. No fever. Dyspnea is about the same as yesterday but better than admission. Poor appetite and poor nutrition continues. Still unsteady on his feet. Exam Narrative: Exam Narrative: He is alert and appears in no distress. Respirations are clear to auscultation. Marked decreased breath sounds in all lung marrufo. Prolonged expiratory phase. No wheezing. Rare crackles. Cardiovascular: S1, S2, regular rate and rhythm. Abdomen is soft without tenderness or mass. Extremities without edema. Minimal tremor Const: Vital Signs, click to edit/add: Vital Signs - 24 hr 07/05/23 15:15 07/05/23 15:15 07/05/23 19:00 Temperature 98.3 F 97.5 F L Pulse Rate [Pulse Oximeter] 84 76 Respiratory Rate 18 18 20 Blood Pressure [Ri ght Arm] 159/76 H 120/62 Pulse Oximetry 98 98 95 Oxygen Delivery Me thod Room Air Room Air Room Air Oxygen Flow Rate 0 0 0 07/05/23 23:00 07/05/23 23:30 07/05/23 23:36 Temperature 98.4 F Pulse Rate [Pulse Oximeter] 74 Respiratory Rate 22 22 22 Blood Pressure [Ri ght Arm] 128/80 Pulse Oximetry 92 92 Oxygen Delivery Me thod Room Air Room Air Oxygen Flow Rate 07/06/23 05:32 07/06/23 07:58 07/06/23 07:58 Temperature 98.4 F Pulse Rate [Pulse Oximeter] 67 67 Respiratory Rate 22 18 18 Blood Pressure [Ri ght Arm] 116/62 Pulse Oximetry 93 Oxygen Delivery Me thod Room Air Oxygen Flow Rate 07/06/23 07:58 07/06/23 11:45 Temperature 97.5 F L Pulse Rate [Pulse Oximeter] 68 Respiratory Rate 18 18 Blood Pressure [Ri ght Arm] 130/70 Pulse Oximetry 93 95 Oxygen Delivery Me thod Room Air Room Air Oxygen Flow Rate 0 Documenting provider has reviewed patient's vital signs: yes Labs Labs: Laboratory Results - last 24 hr 07/06/23 06:09 WBC 7.02 RBC 4.10 L Hgb 11.9 L Hct 37.5 MCV 92 MCH 29 MCHC 32 RDW Coeff of Karolyn 13.2 Plt Count 306 Neut % (Auto) 62.5 Lymph % (Auto) 26.6 [place] % (Auto) 9.0 Eos % (Auto) 0.3 Baso % (Auto) 0.0 Neut # (Auto) 4.39 Lymph # (Auto) 1.87 [place] # (Auto) 0.60 Eos # (Auto) 0.02 Baso # (Auto) 0.00 Abs Immat Gran (auto) 0.11 Imm/Tot Granulo (auto) 1.6 Sodium 139 Potassium 4.1 Chloride 102 Carbon Dioxide 32 Anion Gap 5 L BUN 11 Creatinine 0.8 Estimated Creat Clear 48.86 Estimated GFR 97 Glucose 88 Calcium 9.7 C-Reactive Protein 5.0 H
[2023-07-06] MEDS: cephALEXin 500 MG CAPSULE PO ×2 (14:00→20:29)
--- NOTE | 2023-07-06 19:16 | PC.NURSE ---
End of Shift: Patient pleasant and cooperative, A/O. Patient vitally stable, lungs diminished, BS WNL, IV SL and intact. Patient denies pain. Patient 1 assist, walker, gb and unsteady. Patient tolerating regular diet eating breakfast and dinner. Patient urinating and had 1 small BM.
[2023-07-06] MEDS: ENOXAPARIN 40 MG/0.4 ML INJ SUBCUT (20:29)
[2023-07-06 22:41] LABS: Vitamin B1, Whole Blood 235 nmol/L (70-180)
[2023-07-07 03:00] VITALS: RESP 18; O2SAT 95
[2023-07-07] MEDS: IPRAT-ALBUT 0.5-2.5 MG/3 ML NEB 1 NEB IH (05:15)
[2023-07-07 05:40] VITALS: RESP 18
--- NOTE | 2023-07-07 06:24 | PC.NURSE ---
Shift note: Pt has been in bed throughout the shift. Alert and oriented, vital signs stable. Pt has been on restful night since 2330. Pt accidentally removed his IV line that caused unmeasured amount of bleeding. Stained beddings changed. Due treatment given and charted.
[2023-07-07 06:26] LABS: Basophils Absolute Auto 0.01 K/uL (0.00-0.30); Basophils Percent Auto 0.2 % (0.0-3.0); Eosinophils Absolute Auto 0.15 K/uL (0.00-0.50); Eosinophils Percent Auto 2.3 % (0.0-7.0); Hematocrit 39.9 % (37.0-53.0); Hemoglobin* 12.7 gm/dL (13.5-17.5); Immature Granulocytes Abs Auto 0.12 K/uL (0.00-0.30); Immature Granulocytes Pct Auto 1.8 %; Lymphocytes Absolute Auto 2.11 K/uL (0.90-2.90); Lymphocytes Percent Auto 31.8 % (20-44); Mean Corpuscular HGB Conc 32 gm/dL (32-36); Mean Corpuscular Hemoglobin 29 pg (26-34); Mean Corpuscular Volume 92 fL (80-100); Monocytes Percent Auto 12.3 % (0.0-11.0); Neutrophils Absolute Auto 3.43 K/uL (1.7-7.0); Neutrophils Percent Auto 51.6 % (42.0-72.0); Platelet Count* 302 K/uL (140-440); RDW Coefficient of Variation % 13.2 % (11.5-15.5); Red Blood Count 4.33 m/uL (4.30-5.90); White Blood Count* 6.64 K/uL (4.50-11.00)
[2023-07-07 06:27] LABS: Slide Review Reflex No
[2023-07-07 06:47] LABS: Chloride* 101 mmol/L (96-114); Potassium* 4.4 mmol/L (3.6-5.1); Sodium* 138 mmol/L (135-149)
[2023-07-07 06:50] LABS: Anion Gap 7 mEq/L (7-15); Blood Urea Nitrogen* 13 mg/dL (7-30); Calcium* 9.4 mg/dL (8.4-10.6); Carbon Dioxide* 30 mmol/L (20-32); Creatinine* 0.9 mg/dL (0.5-1.5); Est. Creatinine Clearance* 48.86; Estimated Glomerular Filt Rate 94 ml/min; Glucose* 88 mg/dL (60-115)
[2023-07-07 08:51] VITALS: BP 135/73; PULSE 76; RESP 20; TEMP 36.4; O2SAT 94
[2023-07-07] MEDS: MULTIVITAMIN/MINERALS 1 TABLET 1 TAB PO (08:53)
[2023-07-07] MEDS: THIAMINE 100 MG TABLET 500 MG PO (08:53)
[2023-07-07] MEDS: METOPROLOL SUCCINATE (XL) 25 MG TAB PO (08:53)
[2023-07-07] MEDS: FOLIC ACID 1 MG TABLET PO (08:53)
[2023-07-07] MEDS: cephALEXin 500 MG CAPSULE PO (08:54)
--- NOTE | 2023-07-07 10:01 | PC.SOCIAL ---
Addendum entered by KAYLIN Nevarez 07/07/23 10:54: Met with pt who was given Medicare rights form and it was explained. Pt signed and is pleased with discharge plan for today. Provided pt with a copy of the Medical Assistance for [facility] application and he and brother are aware of the benefits of applying for this at this time to assist with ongoing placement costs if needed after rehab stay. PAS submitted PAS#[id number]. Original Note: Discharge plans: Pt has been accepted for admit to [facility] for admit today. Facility would like him sent as soon as possible. Met with pt who is aware and agrees with this plan. Pt requested social services contact his brother, Navjot, to see if he can provide transportation to the facility. Called Navjot who is going to call back with a time he can pick pt up today for transport to [facility]. 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
--- NOTE | 2023-07-07 11:38 | PC.NURSE ---
Discharge: Patient flat and cooperative. Patient vitally stable, right lung diminished, BS WNL, IV had already been removed. Patient denies pain. Patient 1 assist, walker, gb. Patient urinating and tolerating regular diet. Patient signed belongings sheet and discharge form. Patient left the floor by wheelchair at 1126, to his ride who is bring patient to [facility]. Nurse to Nurse report given to Maile at [facility].
--- NOTE | 2023-07-07 11:53 | PM.DS1 ---
DS: Providers Provider Date Seen: 07/07/23 Date of admission: 07/04/23 09:15 Primary care physician: Joel Begum MD Admitting Clinician: Shu Vaughan MD Attending Physician on discharge: Chirag Martinez MD Date of Discharge: 07/07/23 DS: Diagnosis Discharge Diagnosis (1) Acute and chronic respiratory failure with hypoxia: Status: Acute Problem details: Likely pneumonia complicating underlying COPD. Not obviously heart failure causing hypoxia currently. Now improved and off oxygen. (2) Pneumonia: Status: Acute Problem details: Clinically he appears to be modestly improved today - h/o aspiration pneumonia, previously on dysphagia diet, consult speech therapy for swallow evaluation. - Admit for treatment. Full treatment course of ceftriaxone and azithromycin - Will need outpatient follow up imaging if consistent with patient goals of care. He has h/o pulm nodules, chronic smoker (3) UTI (urinary tract infection): Status: Acute Problem details: MSSA. Treat with cephalexin 500 mg t.i.d. for one more week. (4) COPD (chronic obstructive pulmonary disease): Status: Chronic Problem details: - PRN nebs - short course of prednisone completed (5) Systolic CHF: Status: Acute Problem details: Echocardiogram in 2012 and 2016 showed ejection fraction around 25%. 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 Previously recommended to be on modified diet. Here he has done well without any need for modifying consistency of food and fluid (7) Anemia in chronic illness: Status: Acute Problem details: 01/13/2013 Hemoglobin 11.2 01/14/2013 9.1. Ferritin level 3971 05/27/2022 Hgb 15.9 (8) Tobacco use disorder: Status: Acute Problem details: Declines nicotine replacement. Not interested in stopping smoking (9) Homelessness: Status: Acute Problem details: Currently living with his brother but concerned that this is a unacceptable of living arrangement. History of intermittent homelessness in the past (10) Alcohol abuse: Status: Acute Problem details: Stop drinking about June 2022. Multiple problems appear to be sequela lie of drinking but not due to current alcohol abuse. No signs of withdrawal. (11) Colonic thickening: Status: Acute Problem details: Seen on CT Scan [facility], Colonoscoyp recommended, pt decliend (12) Parkinson disease: Status: Acute Problem details: Diagnosis made in [place]. He had a trial of Sinemet which was of no benefit. This diagnosis is probably not accurate (13) Empyema of lung: Status: Acute Problem details: 01/04/2019 [place]: Left pleural space; Large left-sided pleural effusion with loculated empyema with streptococcus intermedius. Treated conservatively with chest tube, tissue plasminogen activator, and IV Rocephin. (14) Cerebral vascular disease: Status: Acute Problem details: Small vessel ischemic disease, old lacunar infarcts on head CT 01/2019 (15) Sepsis with acute hypoxic respiratory failure: Status: Acute Problem details: Sepsis clinically resolved (16) Failure to thrive: Status: Chronic Problem details: Recurrent hospitalizations over many years with failure to thrive and generalized weakness, increased falls, severe malnutrition, dysphagia, and weight loss. Transitional care on discharge. (17) Pulmonary nodule: Status: Suspected Problem details: 07/02/23 CXR: Increased hazy lung markings in the left lung base and left upper lobe, could represent multilobar pneumonia in the correct clinical setting, or scarring/fibrotic changes. New dense pulmonary nodule in the left midlung frontal image. While this could represent nodular consolidation in the setting of infection, a pulmonary nodule or calcified granuloma could appear similar. Recommend follow-up imaging after treatment to ensure resolution. (18) Protein calorie malnutrition: Status: Acute Problem details: - Dietary supplementation - Nutrition consult (19) Hypertension: Status: Chronic Problem details: Amlodipine, atenolol. 01/18/2013 amlodipine discontinued due to low blood pressure. December 2012: Cardiology recommended switch of atenolol to coreg and initiation of lisinopril. May 2022: Added back amlodipine. Jun 2022: Doubled amlodipine to 10mg. June 2023: Amlodipine was stopped and metoprolol dose was reduced due to low blood pressure. 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 Shaw Jul 2012. ~ Since 1979, intermittent, tonic clonic, [place] [facility] [place] been on Medications. Seizure vs Alcohol withdrawal or both. ~ September 2012: Follow up with Dr. Shaw, increased Keppra to 1000 mg twice daily. November 2020: Dr. Van Martinez consult in Neurology, restarted Keppra, Patient was off seizure medication for about 3 years. Last seizure was 1 year ago. Last alcohol was 1 year ago. Keppra was not restarted. He remains at risk for seizures but lower risk while abstinent from alcohol. (21) Weakness: Status: Acute Problem details: On admission was unable to walk. Now walking with unsteady gait and standby assistance DS: Summary Hospital Course Hospital Course: Interval history: 67-year-old male with COPD, heart failure with reduced ejection fraction, history of left empyema, seizure disorder, Parkinson's disease, malnutrition and previous strokes presents for profound weakness. Patient notes the primary problem that developed yesterday was his legs were so weak he could not walk. Paramedics were unable to get him to walk to the ambulance and they had to carry him on a stretcher. Longstanding history of problems with failure to thrive due to multiple reasons. Multiple hospitalizations where he has been diagnosed with pneumonia and empyema and encephalopathy and complications of alcohol abuse and renal failure and heart failure. These often lead to a rehab stay at a TCU. Eventually he leaves the TCU and continues on a pattern that leads to further failure. He has been largely not compliant with most of his medications though at this time he reports taking 2 blood pressure medicines and 1 inhaler. Not taking medicines for seizure treatment or Parkinson's. Patient tells me that his weakness was acute onset in the last day but he does note that he falls a lot at home and he thinks his brother is no longer able to care for him in the home. He lives in his brother's home which he says is a very old home, greater than 100 years old, and has small hallways and R-waves and has no room for him to have a walker. He tells me his brother cooks for him and they eat 1 meal a day. Outside of that meal he does do some snacking. He tells me he is getting enough to eat and that there is no food insecurity. Uncertain of that quality of the food that he is receiving. A longstanding history of alcohol abuse which is likely contributing to many of his problems. He reports he stop drinking about a year ago. Longstanding history of smoking cigarettes which he continues to smoke a pack a day. He has no interest in stopping or in nicotine replacement. He has COPD and has been on chronic oxygen in the past but not recently. He was hospitalized at [facility] with a left-sided empyema December of 2018 this was treated with chest tube drainage and lytics. Recurrent hospitalizations for pneumonia with a history of aspiration pneumonia and swallowing evaluation suggesting swallowing difficulties. He has had dietary recommendations to manage this in the past but is not following any restrictions in the food and liquid consistency. He has a history of heart failure with reduced ejection fraction. The last echo I can find reference to his from 2017 showing an ejection fraction of 25%. Also chronic left bundle branch block. He has been treated with heart failure medicines in the past but discontinued all of them except metoprolol. He has had a remote history of acute kidney injury with a creatinine greater than 10. This was thought to be due to volume depletion and malnutrition. This resolved with hydration. He has had a history of seizures. EEG showed a focus of epilepsy in the right parietal area. He has been repeatedly treated with Keppra and repeatedly has stop taking it. He has not had any Keppra for 2 or 3 years. His last seizure was a year ago He was diagnosed with Parkinson's disease in [place] 2 or 3 years ago. He was treated with Sinemet which was of no help. It is not clear based on observation today that he actually has Parkinson's disease. He has been diagnosed with depression in the past and started on antidepressant but he has discontinue that. At the time of this admission he was thought to have a left-sided pneumonia. Started on a Zithromax and ceftriaxone for community-acquired pneumonia. He is given prednisone for COPD and inhaled bronchodilators as well. He started on oxygen. Overnight he has appeared to wean off of the oxygen though O2 sats still drop into the upper 80s. He reports feeling quite a bit better today. Nursing staff note that his blood pressure is been low overnight and that his urine output has been low overnight. Day 2: He is weaned off oxygen. He reports being quite unsteady on his feet. His appetite is not very good in his diet has been low quality foods, snack foods. No BM Day 3. Remains off oxygen. Still quite unsteady on his feet. Still coughing but no fever. Poor appetite and not eating reliably nutritious foods. Day 4: Reports his condition is about the same. Not needing oxygen. Cough is maybe a little better. No fever. Dyspnea is about the same as yesterday but better than admission. Poor appetite and poor nutrition continues. Still unsteady on his feet. Day 5: Patient is modestly better. Appetite is better. Eating better. Moving better. Breathing better. Status at Discharge Functional status at discharge: uses cane/walker Overall status at discharge: patient is progressing back to baseline Time Spent with Patient Time attestation: Total time spent providing and/or coordinating discharge services: Time spent: Greater than 30 minutes Exam Narrative: Exam Narrative: He is alert and pleasant and appears in no distress. Respirations with marked decreased breath sounds. No wheezing. No rales or rhonchi. Cardiovascular: S1, S2, regular rate and rhythm. Abdomen is soft without tenderness or mass. No edema. Const: Vital Signs, click to edit/add: Vital Signs - 24 hr 07/06/23 15:00 07/06/23 15:00 07/06/23 15:00 Temperature 97.7 F Pulse Rate [Pulse Oximeter] 73 73 Respiratory Rate 20 20 20 Blood Pressure [Ri ght Arm] 120/68 Pulse Oximetry 95 95 Oxygen Delivery Me thod Room Air Room Air Oxygen Flow Rate 0 07/06/23 19:00 07/06/23 23:00 07/06/23 23:00 Temperature 97.6 F Pulse Rate [Pulse Oximeter] 75 Respiratory Rate 18 18 18 Blood Pressure [Ri ght Arm] 124/75 Pulse Oximetry 95 95 Oxygen Delivery Me thod Room Air Room Air Oxygen Flow Rate 0 0 07/06/23 23:00 07/06/23 23:30 07/07/23 03:00 Temperature 97.6 F Pulse Rate [Pulse Oximeter] 67 Respiratory Rate 18 18 18 Blood Pressure [Ri ght Arm] 113/67 Pulse Oximetry 95 95 Oxygen Delivery Me thod Room Air Room Air Oxygen Flow Rate 0 0 07/07/23 05:40 07/07/23 08:51 07/07/23 08:51 Temperature 97.6 F Pulse Rate [Pulse Oximeter] 76 76 Respiratory Rate 18 20 20 Blood Pressure [Ri ght Arm] 135/73 Pulse Oximetry 94 Oxygen Delivery Me thod Room Air Oxygen Flow Rate 07/07/23 08:51 Temperature Pulse Rate [Pulse Oximeter] Respiratory Rate 20 Blood Pressure [Ri ght Arm] Pulse Oximetry 94 Oxygen Delivery Me thod Room Air Oxygen Flow Rate 0 Documenting provider has reviewed patient's vital signs: yes DS: Data Data Completed and Pending Labs on day of discharge: Labs from last 24 hours 07/07/23 07/03/23 06:02 05:36 WBC 6.64 RBC 4.33 Hgb 12.7 L Hct 39.9 MCV 92 MCH 29 MCHC 32 RDW Coeff of Karolyn 13.2 Plt Count 302 Neut % (Auto) 51.6 Lymph % (Auto) 31.8 [place] % (Auto) 12.3 H Eos % (Auto) 2.3 Baso % (Auto) 0.2 Neut # (Auto) 3.43 Lymph # (Auto) 2.11 [place] # (Auto) 0.80 Eos # (Auto) 0.15 Baso # (Auto) 0.01 Abs Immat Gran (auto) 0.12 Imm/Tot Granulo (auto) 1.8 Sodium 138 Potassium 4.4 Chloride 101 Carbon Dioxide 30 Anion Gap 7 BUN 13 Creatinine 0.9 Estimated Creat Clear 48.86 Estimated GFR 94 Glucose 88 Calcium 9.4 Whole Bld Vitamin B1 235 H Preliminary micro results at discharge 07/02/23 20:23 Blood Culture - Preliminary Blood NO GROWTH AFTER 96 HOURS 07/02/23 20:23 Blood Culture - Preliminary Blood NO GROWTH AFTER 96 HOURS Imaging Chest x-ray: Radiologist's impression: INDICATION: Shortness of breath TECHNIQUE: Chest 2 view. Permanently recorded images are archived. COMPARISON: 03/30/2016 FINDINGS: Cardiovascular and mediastinum: Heart size and vasculature are normal in caliber and appearance. Unchanged calcified left hilar granuloma Lungs and pleural spaces: Hyperexpanded lungs. New dense pulmonary nodule in the left midlung on the frontal image. Unchanged small pulmonary nodule in the left upper lobe. Increased hazy lung markings in the left lung base and left upper lobe Bones and soft tissues: Unremarkable for age. IMPRESSION: Increased hazy lung markings in the left lung base and left upper lobe, could represent multilobar pneumonia in the correct clinical setting, or scarring/fibrotic changes. New dense pulmonary nodule in the left midlung frontal image. While this could represent nodular consolidation in the setting of infection, a pulmonary nodule or calcified granuloma could appear similar. Recommend follow-up imaging after treatment to ensure resolution. Discharge Plan Discharge Disposition: [facility] Date of Admission: 07/04/23 09:15 Attending Provider on Discharge: Patel Martinez Primary Care Provider: Joel Begum Condition: Stable Discharge Medications: New sennosides [Senna Lax] 8.6 mg Tablet 8.6 mg PO BID PRNQty: 30 0RF melatonin 3 mg Tablet 3 mg PO HS Qty: 30 0RF cephalexin 500 mg Capsule 500 mg PO TID Qty: 20 0RF metoprolol succinate 25 mg Tablet Extended Release 24 Hr 25 mg PO DAILY Qty: 30 0RF multivitamin with folic acid [Thera] 400 mcg Tablet 1 tab PO DAILY Qty: 30 0RF Continued albuterol sulfate 90 mcg/actuation HFA aerosol inhaler 2 puff inhalation Q4H PRN Discontinued metoprolol tartrate 50 mg tablet 50 mg PO DAILY amlodipine 10 mg tablet 10 mg PO DAILY Discharge Orders: Discharge Order (Routine); Ordered 07/07/23 Ordered By: Patel Martinez Activity Level: Up with assist and Use Walker Discharge Diet: High Protein/High Calorie Follow Up Appointments: Joel Begum MD [Primary Care Provider] - Provider,Not a Local [Referring] - Admit to: SNF Discharge Potential: Fair Length of Stay: 30-90 days Can use facility standing orders?: Yes Code Status: DNR/DNI Rehab Potential: Fair Therapy: Physical Therapy and Occupational Therapy Therapy Orders: Evaluate and Treat
== END 2023-07-07 11:26 | DRG 189 ==
LOC: ED 20:43 → MEDSURG 21:20
PROVIDERS: Family Medicine; Admitting Provider Family Medicine; Emergency Provider Family Medicine; PCP Family Medicine; Visit Provider Family Medicine
DX: J96.21 Acute and chronic respiratory failure with hypoxia (principal); J18.9 Pneumonia, unspecified organism; E43 Unspecified severe protein-calorie malnutrition; J44.0 Chronic obstructive pulmonary disease with (acute) lower respiratory infection; N39.0 Urinary tract infection, site not specified; Z68.1 Body mass index [BMI] 19.9 or less, adult; G40.109 Localization-related (focal) (partial) symptomatic epilepsy and epileptic syndromes with simple partial seizures, not intractable, without status epilepticus; I67.89 Other cerebrovascular disease; I13.0 Hypertensive heart and chronic kidney disease with heart failure and stage 1 through stage 4 chronic kidney disease, or unspecified chronic kidney disease; I42.6 Alcoholic cardiomyopathy; I50.20 Unspecified systolic (congestive) heart failure; N18.9 Chronic kidney disease, unspecified; D63.8 Anemia in other chronic diseases classified elsewhere; B95.61 Methicillin susceptible Staphylococcus aureus infection as the cause of diseases classified elsewhere; Z59.00 Homelessness unspecified; G20 Parkinson's disease; R62.7 Adult failure to thrive; R53.1 Weakness; R13.10 Dysphagia, unspecified; G47.33 Obstructive sleep apnea (adult) (pediatric); R91.1 Solitary pulmonary nodule; F17.210 Nicotine dependence, cigarettes, uncomplicated; F10.21 Alcohol dependence, in remission; I44.7 Left bundle-branch block, unspecified; K63.89 Other specified diseases of intestine; Z86.73 Personal history of transient ischemic attack (TIA), and cerebral infarction without residual deficits
CPT/HCPCS: 36415; 71046; 80048; 80076; 81001; 83605; 83880; 84425; 84443; 84484; 85025; 86140; 87040; 87086; 87186; 87631; 92610; 93005; 94640; 94761; 97110; 97116; 97163; 97165; 97530; 97535; 99283; 99284; 99285; G0378; A9153; A9270; J0456; J0696; J1650; J7050; J7120; J7512